=== PATIENT | female | born 1940 | race Caucasian/White ===

== ENCOUNTER 2017-02-08 12:15 | Inpatient (IN) | payer OTHER, MEDICARE ==
[~2017-02-08] VITALS: Ht 167.6 cm; Wt 72.5 kg
[~2017-02-08 12:15] MED LIST: APIX5TAB PO; LEVE500T8 PO; LEVO-129 PO; OMEP20CA2 PO; SIMV10TA PO; TEMA15CA PO; TIZA4 PO
[2017-02-15] MEDS ORDERED: DULC5TAB PO (11:49)
[2017-02-15] MEDS ORDERED: OXYC-395 PO (11:55)
[2017-02-18] MEDS ORDERED: MACR100C2 PO (15:47)
[2017-02-20] MEDS ORDERED: PROM25TA5 PO (11:20)
[2017-02-27] MEDS ORDERED: SODIUM CHLOR 0.9% 1000 ML INJ 1,000 ML IV SCH (07:00)
[2017-02-27] MEDS ORDERED: VANCOMYCIN HCL 1000 MG ON-CALL/NS 250 ML IV SCH ×2 (07:00)
[2017-02-27 07:30] VITALS: BP 79/49; PULSE 62; RESP 18; TEMP 98; O2SAT 99
[2017-02-27] MEDS ORDERED: POVIDONE IODINE 5% (ANTISEPSIS KIT) 4 APPLICATIONS EACH NARE PRN (07:30)
[2017-02-27] MEDS ORDERED: METOPROLOL TARTRATE 25 MG TAB PO PRN (07:30)
[2017-02-27] MEDS ORDERED: CHLORHEXIDINE GLUCONATE 2 % 1 PACK (2 CLOTHS) TOPICAL PRN (07:30)
[2017-02-27] MEDS ORDERED: LACTATED RINGER'S 1000 ML IV PRN (07:30)
[2017-02-27] MEDS ORDERED: SODIUM CHLORID 0.9% 500 ML IV PRN (07:30)
[2017-02-27] MEDS ORDERED: INSULIN HUMAN REGULAR 1,000 UNITS/10 ML VIAL SQ PRN (07:30)
[2017-02-27] MEDS ORDERED: GELFOAM SIZE 100 ONE (07:34)
[2017-02-27] MEDS ORDERED: THROMBIN (TOPICAL) 5,000 UNIT VIAL ONE (07:34)
[2017-02-27] MEDS ORDERED: BUPIVACAINE/EPINEPHRINE 0.5% PF 30 ML VIAL ONE (07:34)
[2017-02-27] MEDS ORDERED: ceFAZolin 2 GM PREMIX 50 ML ONE (07:34)
[2017-02-27] MEDS ORDERED: GENTAMICIN SULFATE 80 MG/2 ML VIAL ONE (07:35)
[2017-02-27] MEDS ORDERED: ACETAMINOPHEN 1000 MG/100 ML VIAL IV ONE (08:24)
[2017-02-27] MEDS ORDERED: MIDAZOLAM HCL 2 MG/2 ML VIAL ONE (08:24)
[2017-02-27] MEDS ORDERED: fentaNYL CITRATE 250 MCG/5 ML AMP ONE (08:25)
[2017-02-27] MEDS ORDERED: ARTIFICIAL TEARS OPTH OINT 3.5 APPLIC/3.5 GM TUBO ONE (08:25)
[2017-02-27] MEDS ORDERED: PHENYLEPHRINE HCL 10 MG/ML VIAL IV ONE (12:00)
[2017-02-27] MEDS ORDERED: LACTATED RINGER'S 1000 ML INJ 1,000 ML IV ONE (12:00)
[2017-02-27] MEDS ORDERED: SODIUM CHLOR 0.9% 250 ML INJ 250 ML IV ONE (12:00)
[2017-02-27] MEDS ORDERED: ONDANSETRON HCL 4 MG/2 ML VIAL IV PUSH ONE (12:00)
[2017-02-27] MEDS ORDERED: SODIUM CHLORID 0.9% 500 ML INJ 500 ML IV ONE (12:00)
[2017-02-27] MEDS ORDERED: PROPOFOL 200 MG/20 ML AMP IV ONE (12:00)
[2017-02-27] MEDS ORDERED: NALOXONE HCL 0.4 MG/ML AMP IV PRN (12:30)
[2017-02-27] MEDS: SODIUM CHLORIDE 0.9% FLUSH 5 ML FLUSH IVF SCH ×2 (12:30→20:26)
[2017-02-27] MEDS ORDERED: cloNIDine HCL 0.1 MG TAB PO/NG PRN (12:30)
[2017-02-27] MEDS ORDERED: CYCLOBENZAPRINE HCL 10 MG TAB PO PRN (12:30)
[2017-02-27] MEDS ORDERED: diphenhydrAMINE HCL 50 MG/ML VIAL IV PRN (12:30)
[2017-02-27] MEDS ORDERED: ACETAMINOPHEN/HYDROcodone 325 MG/10 MG TAB PO PRN (12:30)
[2017-02-27] MEDS ORDERED: ACETAMINOPHEN 325 MG TAB PO PRN (12:30)
[2017-02-27] MEDS ORDERED: SODIUM CHLORIDE 0.9% FLUSH 5 ML FLUSH IVF PRN (12:30)
[2017-02-27] MEDS ORDERED: MENTHOL LOZENGE BUCCAL PRN (12:30)
[2017-02-27] MEDS ORDERED: RESP: ALBUTEROL 2.5 MG/3 ML NEB (PRN) INH (12:30)
[2017-02-27] MEDS ORDERED: DO NOT ADM ANY ANTICOAGULANT DRUGS PRN (12:57)
[2017-02-27] MEDS ORDERED: *morphine SULFATE 8 MG/ML PERIprocedure ONLY ONE (13:31)
--- NOTE | 2017-02-27 13:38 | PD.OP ---
Operative Report Date of Surgery: Feb 27, 2017 Preoperative Diagnosis: L4-5 spondylolisthesis Postoperative Diagnosis: L4-5 spondylolisthesis Procedure: L4-5 laminectomy, interbody arthrodhesis using PEEK cage and autologous bone graft, L4-5 instrumental fixation using transpedicular screws and rods, L4-5 posterolateral fusion using autologous bone graft and rods. Microsurgical dissection Anesthesia: general Surgeon: Joe Frances Culinary Internship(s): Anita Linda Operation and Findings: INDICATIONS FOR THE SURGICAL PROCEDURE Ms Macario is a 76 year-old female who presented with intractable mechanical back pain and michelle evidence of L5 lower extremity radiculopathy. She failed maximum nonsurgical management including multiple modalities of conservative treatment as well as pain management interventions by an interventional pain specialist. She has spondylolisthesis and severe loss of disk height. A surgical decompression and arthrodhesis were indicated as a last resort. The [id number] details of the procedure, indications, alternatives, risks and potential complications were fully discussed with her. She fully understood. All the questions were answered. No guarantees were given. The patient voiced requesting the procedure and provided informed consents. The patient was offered the alternative of delaying the procedure and continuing with nonsurgical management. DETAILS OF THE SURGICAL PROCEDURE Prior to the procedure, the surgical incision was marked in the preoperative surgical holding room, and the procedure, risks, and potential complications revisited with the patient. Placement of electrodes for intraoperative neurophysiological monitoring was completed. The patient was taken to the operative room, and following induction of general anesthesia, endotracheal intubation was performed. A Holder catheter, bilateral JEAN hose and sequential compression devices were placed and kept throughout the procedure. The patient was positioned prone, over a Benito table over a Bunny frame. All pressure in the preoperative surgical holding room points were carefully padded with eggcrate and gel mattress. The eyes were tapped shut after ointment was applied by the anesthesiologist to prevent corneal abrasion. A Ava hugger was placed over the expossed lower body to maintain control of the core body temperature. The electrophysiological team placed the needles and electrodes in their proper location and baseline SSEP's and motor evoked potentials were registered prior and following the positioning. The entrance to each pedicles was marked using a C arm. The lumbar region was prepped and draped in the usual sterile fashion. The surgical procedure was performed in several steps as follow: SURGICAL APPROACH Once the patient was positioned, a localizing cross-table lateral x-ray was performed with a C-arm. Two paramedian small incisions were outlined on the skin approximately 3cm from the midline. The skin incisions were made with a # 10 blade. Small bleeders were controlled with the cautery. The dissection was then carried out into deper planes and through the thoracolumbar fascia with a Bovie. The intermuscular septum was identified and the myscles were blunted dissected along the septum. The facets and transverse process of L4, L5 and S1 were exposed and the proper anatomical landmarks were identified. A microsurgical self-retaining retractor was placed on the incision, and a localizing lateralizing cross-table x-ray was performed with an instrument underneath a lamina of the lumbar spine. There was a bilateral pars defect with gross instability of the bony structures. INSTRUMENTAL FIXATION At this point in the procedure, placement of bilateral transpedicular screws was necessary for stabilization of the spine. Initially, the entry point for the screw was selected anatomically at the junction of the facet, with the transverse process, and the pars interarticularis at L5 and at the sacrum. This was started with a Giamshetti needle, followed by the use of an meneses wire, and then a tap was used to create the threads for the screws. Finally bilateral transpedicular screws were carefully placed bilaterally at L4, L5 under fluoroscopic visualization. An appropriate purchase was achieved with all screws. The position of each screw was assessed anatomically with an AP, lateral , oblique Xrays. An intraoperative scan view of the spine was then performed using the iso-centric c-arm. Each screw was then assessed electrophysiologically with a nerve stimulator. SURGICAL DECOMPRESSION There was significant mass effect with compression of the neural structures. In order to relieve neural compression, it was necessary to perform a decompressive laminectomy, with decompression of the spinal canal and bilateral lateral recesses. Note that the scope of such decompression was significantly more extensive than the minimal exposure necessary to perform an interbody fusion, as there was extreme facet arthropathy with near complete collapse of the disk spaces and severe stenosis cause by the hyperthrophic joint facets. At this point of the procedure the operative microscope was draped in the usual sterile fashion and brought to the field. The rest of the surgical procedure was performed using microdissection technique with the exception of the closure. Under the operating microscope, a decompressive laminectomy was carried out at L4-5 as follow: The laminae, base of the spinous processes and facets were carefully drilled exposing the ligamentum flavum. The facets were abnormal with severe facet arthropathy, vacuum facets, and mass effect over the neural structures. A broad disk protusion was contributing to compression of the neural structures and exiting L5 nerve roots. A near complete facetectomy was necessary resulting in further mechanical instability. The ligamentum flavum appeared hypertrophic, resulting on mass effect on the dorsal surface of the neural structures. The superior free border of the ligamentum flavum was elevated with a ligament dissector and the ligamentum flavum was removed with a 3 and 4 mm Kerrison forceps. The ligament was very adherent to the dural sac and during the dissection, ans extreme care was taken during the dissection. The exiting nerve roots were identified, and a wide foraminotomy was performed with a Kerrison in their trajectory towards the neural foramen at both levels. Epidural veins located laterally to the dural sac were coagulated with the bipolar cautery, and then incised using microscissors. Gentle medial retraction of the dural sac allowed me to expose the disc space for the discectomy. Upon completion of the discectomy, an excellent decompression of the neural structures was achieved. INTERBODY ARTHRODHESIS In order to correct the narrowing of the disk space and maintain distraction of the space, and to achieve a solid interbody fusion, it was necessary the insertion of an interbody device into the disk space. Otherwise, the disk space would collapse, compromising the result of the surgical procedure. At this point of the procedure, the annulus fibrosus of the disk was carefully coagulated with a bipolar cautery and incised using an 11 bladed knife. Then, a microdiscectomy was carried out in a standard fashion using a combination of straight and up-biting pituitary forceps. A reverse angle curette was applied underneath the posterior longitudinal ligament, and used to push the disk fragments into the disk space, so they can be safely removed with a pituitary forceps. Once the discectomy was completed, it was necessary to decorticate the endplates, in order to eliminate the cartilaginous endplate and to expose healthy bone appropriate to perform the interbody fusion. The endplates at L4-5 were then thoroughly decorticated using increasing size bone ela and ring curets, eliminating the cartilaginous fragments from both, the superior and inferior endplates. A disk space distractor was applied to the pedicle screws and gentle distraction was applied. This maneuver was assisted by the use of a disk distractor. Once a thorough preparation of the disk space was achieved, the disk space was irrigated with antibiotic solution, and the interbody fusion was performed by carefully impacting expandable PPEK cages filled with autologous iliac crest bone graft. The cage was properly deployed and thereafter packed with further bone graft by the use of a funnel. A solid position of the cage with good purchase was achieved at both levels. The position of the cages were assessed anatomically with a probe and radiologically with the C-arm. POSTEROLATERAL FUSION The posterolateral fusion is a critical component to the procedure, to prevent future fatigue and failure of the instrumental fixation. Initially, the transverse processes of the vertebral bodies, lateral surface of the facets and the lateral gutters of the spine were carefully cleaned, eliminating all soft tissue and muscle attachments. The area was then irrigated with a large amount of antibiotic solution. Subsequently, the transverse processes, lateral surface of the facets, and lateral gutters of the spine were thoroughly decorticated using the TPS drill with a 5mm cutting bautista, exposing cancellous bone, in preparation for the posterolateral fusion. The incision was again irrigated with antibiotic solution. Then, the posterolateral fusion was then performed by carefully packing the lateral gutters of the spine at L4-5, and L5-S1 with autologous bone combined with demineralized bone matrix. I packed as much bone as possible. COMPLETION OF THE INSTRUMENTATION AND CLOSURE The rods were brought to the field, applied to all the screws, and the screw caps were sequentially applied. Compression was performed between the pedicle screws, and final tightening of the screws was completed using a torque wrench The incision was again thoroughly irrigated with several liters of antibiotic solution, and hemostasis secured with the bipolar cautery. A Valsalva Maneuver performed by the anesthesiologist failed to show any evidence of cerebrospinal fluid leak or bleeding. A 7 mm Benito-Gutierrez drain was left in the epidural space and externalized through a separate stab incision. The incision was then closed in planes. 0 Vicryl was used in an interrupted fashion to close the thoracolumbar fascia and the superficial fascia. The subcutaneous tissue was then approximated using 3-0 Vicryl in an interrupted fashion. Special care was taken to avoid space. The skin was then closed with 4-0 Vicryl in a running, subcuticular fashion. Dermabond was applied to the skin. Each plane of closure was irrigated with antibiotic solution. At the end of the procedure the sponge, needle and instrument counts were all correct. Estimated blood loss was 250 cc or less. No blood transfusion was given. The entire procedure was performed using continuous electrophysiological monitoring of the somatosensorial evoked potentials and EMG. The patient received prophylactic antibiotics. The patient was then extubated and transferred to the recovery room in stable condition. Joe Frances MD Feb 27, 2017 13:38
[2017-02-27] MEDS: NS + KCL 20 MEQ INJ 1,000 ML IV SCH ×2 (13:45→22:24)
--- NOTE | 2017-02-27 13:47 | RADRPT ---
EXAM DATE/TIME: 02/27/2017 09:25 [facility] COMPARISON: No previous studies available for comparison. INDICATIONS : Herniated disk, stenosis, hardware placement. MEDICAL HISTORY : None. SURGICAL HISTORY : ENCOUNTER: Initial ACUITY: 1 day PAIN SCORE: Non-responsive. LOCATION: Lumbar spine, L4-5. FINDINGS: 2 images were recorded digitally in the operating room using C-arm after placement of 2 level bilater al transpedicular screws and metallic interspace device. CONCLUSION: Intraoperative images. Froylan Mantilla MD on February 27, 2017 at 13:45 Board Certified Radiologist. This report was verified electronically.
[2017-02-27] MEDS: PCA - TOTAL MG DILAUDID DELIVERED PER SHIFT SCH ×2 (14:00→22:00)
[2017-02-27] MEDS: HYDROmorphone HCL PCA 6 MG/30 ML IV SCH ×3 (14:21→22:30)
[2017-02-27] MEDS: DOCUSATE SODIUM 100 MG CAP PO SCH ×2 (14:30→20:25)
[2017-02-27] MEDS: PANTOPRAZOLE SOD 40 MG DELAYED RELEASE TAB PO SCH (15:00)
[2017-02-27 16:06] VITALS: BP 158/89; PULSE 79; RESP 14; TEMP 97.4; O2SAT 99
--- NOTE | 2017-02-27 17:27 | PD.CONS ---
HPI Service [facility] Consult Requested By Dr. Frances Reason for Consult Medical management Primary Care Physician Jaden Young M.D. Diagnoses: History of Present Illness This is a 76-year-old female with past medical history of hypothyroidism, hyperlipidemia, seizure, history of DVTs who presented with intractable lower back pain with left radiculopathy. Patient failed conservative management and had L4-5 laminectomy, interbody arthrodhesis using PEEK cage and autologous bone graft, L4-5 instrumental fixation using transpedicular screws and rods, L4-5 posterolateral fusion using autologous bone graft and rods and microsurgical dissection done by Dr. Frances today. [facility] consulted for medical management. Patient complaining of feeling uncomfortable in her lower back after surgery. She stated that her strength has improved. Patient stated that she is very hungry and is asking for food. Otherwise she has no complaints. I did hear a soft heart murmur on exam and patient stated that she has no history of heart murmur. Review of Systems Constitutional: DENIES: Diaphoretic episodes, Fatigue, Fever, Weight gain, Weight loss, Chills, Dizziness, Change in appetite, Night Sweats Endocrine: DENIES: Abnorml menstrual pattern, Heat/cold intolerance, Polydipsia , Polyuria, Polyphagia Eyes: DENIES: Blurred vision, Diplopia, Eye inflammation, Eye pain, Vision loss , Photosensitivity, Double Vision Ears, nose, mouth, throat: DENIES: Tinnitus, Hearing loss, Vertigo, Nasal discharge, Oral lesions, Throat pain, Hoarseness, Ear Pain, Running Nose, Epistaxis, Sinus Pain, Toothache, Odynophagia Respiratory: DENIES: Apneas, Cough, Snoring, Wheezing, Hemoptysis, Sputum production, Shortness of breath Cardiovascular: DENIES: Chest pain, Palpitations, Syncope, Dyspnea on Exertion , PND, Lower Extremity Edema, Orthopnea, Claudication Gastrointestinal: DENIES: Abdominal pain, Black stools, Bloody stools, Constipation, Diarrhea, Nausea, Vomiting, Difficulty Swallowing, Anorexia Genitourinary: DENIES: Abnormal vaginal bleeding, Dysmenorrhea, Dyspareunia, Sexual dysfunction, Urinary frequency, Urinary incontinence, Urgency, Hematuria , Dysuria, Nocturia, Vaginal discharge Musculoskeletal: COMPLAINS OF: Back pain, DENIES: Joint pain, Muscle aches, Stiffness, Joint Swelling, Neck pain Integumentary: DENIES: Abnormal pigmentation, Pruritus, Rash, Nail changes, Breast masses, Breast skin changes, Nipple discharge Hematologic/lymphatic: DENIES: Bruising, Lymphadenopathy Immunologic/allergic: DENIES: Eczema, Urticaria Neurologic: DENIES: Abnormal gait, Headache, Localized weakness, Paresthesias, Seizures, Speech Problems, Tremor, Poor Balance Psychiatric: DENIES: Anxiety, Confusion, Mood changes, Depression, Hallucinations, Agitation, Suicidal Ideation, Homicidal Ideation, Delusions Past Family Social History Allergies: Coded Allergies: Penicillin (Verified Allergy, Severe, Anaphylaxis, 02/27/17) Clindamycin (Verified Adverse Reaction, Severe, NAUSEA, 02/27/17) Past Medical History Hypothyroidism, hyperlipidemia, seizure, history DVT Past Surgical History Patient stated that she could not recall any other past surgical history at the moment. Reported Medications Oxycodone (Oxycodone HCl) 10 Mg Tab 10 Mg PO Q8H PRN Dulcolax DR (Bisacodyl) 5 Mg Tabdr 5 Mg PO DAILY PRN Zanaflex (Tizanidine HCl) 4 Mg Tab 4 Mg PO QID Temazepam 15 Mg Cap 15 Mg PO HS PRN Simvastatin 10 Mg Tab 10 Mg PO DAILY Omeprazole 20 Mg Cap 20 Mg PO BID Levo-T (Levothyroxine Sodium) 137 Mcg Tab 137 Mcg PO HS Levetiracetam 500 Mg Tab 500 Mg PO HS Eliquis (Apixaban) 5 Mg Tab 5 Mg PO BID Active Ordered Medications Current Medications Sodium Chloride 1,000 ml @ 30 mls/hr Q24H IV ; Start 02/27/17 at 07:00; Stop at 14:22; Status DC Vancomycin HCl 1000 mg/Sodium Chloride 250 ml @ 250 mls/hr SWATCH PASTER IV Last administered on 02/27/17t 08:00; Start 02/27/17 at 07:00; Stop 02/27/17 at 16:50 ; Status DC Lactated Ringer's 1,000 ml @ 30 mls/hr Q24H PRN IV SEE LABEL COMMENTS; Start at 07:30; Stop 02/27/17 at 14:03; Status DC Sodium Chloride (NS 500 ml Inj) 500 ml @ 30 mls/hr [id number] PRN IV SEE LABEL COMMENTS; Start 02/27/17 at 07:30; Stop 02/27/17 at 14:03; Status DC Metoprolol Tartrate (Lopressor) 25 mg SWATCH PASTER PRN PO SEE LABEL COMMENTS; Start 02/27/17 at 07:30; Stop 03/02/17 at 07:29 Povidone Iodine (Betadine 5% Antisepsis Kit) 1 applic SWATCH PASTER PRN EACH NARE SEE LABEL COMMENTS; Start 02/27/17 at 07:30; Stop 02/27/17 at 16:50; Status DC Chlorhexidine Gluconate (Chlorhexidine 2% Cloth) 3 pack SWATCH PASTER PRN TOPICAL SEE LABEL COMMENTS; Start 02/27/17 at 07:30; Stop 02/27/17 at 16:50; Status DC Insulin Human Regular (NovoLIN R INJ) See Protocol Table ... SWATCH PASTER PRN SQ SEE PROTOCOL TABLE; Start 02/27/17 at 07:30; Stop 02/27/17 at 16:50; Status DC Thrombin 52756 units 10,000 units STK-MED ONCE .ROUTE Last administered on 02/27 10:51; Start 02/27/17 at 07:34; Stop 02/27/17 at 07:35; Status DC Cefazolin Sodium/ Dextrose (Ancef 2 Gm Premix) 50 ml @ As Directed STK-MED ONCE .ROUTE Last administered on 02/27/17 09:37; Start 02/27/17 at 07:34; Stop at 07:35; Status DC Bupivacaine HCl/ Epinephrine Bitart (Sensorcaine-Epinephrine Pf 0.5% Inj) 30 ml STK-MED ONCE .ROUTE Last administered on 02/27/17 10:50; Start 02/27/17 at 07: 34; Stop 02/27/17 at 07:35; Status DC Gelatin (Gelfoam 100 Top) 1 foam STK-MED ONCE .ROUTE Last administered on 10:50; Start 02/27/17 at 07:34; Stop 02/27/17 at 07:35; Status DC Gentamicin Sulfate (Gentamicin Inj) 240 mg STK-MED ONCE .ROUTE Last administered on 02/27/17 10:51; Start 02/27/17 at 07:35; Stop 02/27/17 at 07:36 ; Status DC Acetaminophen (Ofirmev Inj) 1,000 mg STK-MED ONCE IV ; Start 02/27/17 at 08:24; Stop 02/27/17 at 08:25; Status DC Midazolam HCl (Versed Inj) 2 mg STK-MED ONCE .ROUTE ; Start 02/27/17 at 08:24; Stop 02/27/17 at 08:25; Status DC Fentanyl Citrate (fentaNYL INJ) 500 mcg STK-MED ONCE .ROUTE ; Start 02/27/17 at 08:25; Stop 02/27/17 at 08:26; Status DC Artificial Tears 3.5 applic 3.5 applic STK-MED ONCE .ROUTE ; Start 02/27/17 at 08:25; Stop 02/27/17 at 08:26; Status DC Potassium Chloride/Sodium Chloride (NS + KCl 20 Meq Inj) 1,000 ml @ 100 mls/hr Q10H IV Last administered on 02/27/17t 13:45; Start 02/27/17 at 12:20 IV Flush (NS Flush) 2 ml UNSCH PRN IVF FLUSH AFTER USING IV ACCESS; Start 02/27 at 12:30 IV Flush 2 ml 2 ml BID IVF ; Start 02/27/17 at 12:30 Vancomycin HCl/ Sodium Chloride (Vancomycin Inj/ NS 250 ml Inj) 250 ml @ 250 mls/hr Q12H IV ; Start 02/27/17 at 20:00; Stop 02/28/17 at 08:59 Docusate Sodium (Colace) 100 mg BID PO ; Start 02/27/17 at 14:30 Magnesium Hydroxide (Milk Of Magnesia Liq) 30 ml DAILY PRN PO CONSTIPATION; Start 02/27/17 at 12:30 Pantoprazole Sodium (Protonix) 40 mg DAILY PO ; Start 02/27/17 at 15:00 Ondansetron HCl (Zofran Inj) 4 mg Q6H PRN IV NAUSEA OR VOMITING; Start at 12:30 Cyclobenzaprine HCl (Flexeril) 10 mg Q8H PRN PO MUSCLE SPASM; Start 02/27/17 at 12:30; Stop 02/27/17 at 12:35; Status DC Clonidine (Catapres) 0.1 mg Q6H PRN PO/NG SYS BP GREATER THAN 170 MMHG; Start 02/27/17 at 12:30 Acetaminophen (Tylenol) 650 mg Q4H PRN PO TEMPERATURE > 101.5 F; Start at 12:30 Menthol ([place]) 1 lozenge UNSCH PRN BUCCAL SORE THROAT; Start 02/27/17 at 12:30 Albuterol Sulfate (Albuterol Neb) 2.5 mg Q4HR NEB PRN INH WHEEZING; Start 02/27 at 12:30 Naloxone HCl (Narcan Inj) 0.4 mg UNSCH PRN IV RESPIRATORY RATE LESS THAN 10; Start 02/27/17 at 12:30 Diphenhydramine HCl (Benadryl Inj) 25 mg Q6H PRN IV ITCHING; Start 02/27/17 at 12:30 Hydromorphone HCl (Dilaudid CRUCIBLE FURNACE TENDER Inj) 6 mg UNSCH IV Last administered on t 17:05; Start 02/27/17 at 12:30 CRUCIBLE FURNACE TENDER Dosage Infused (Pha) 1 Q8HR .XX ; Start 02/27/17 at 14:00 Acetaminophen/ Hydrocodone Bitart ([place] 10-325 Mg) 1 tab Q4H PRN PO PAIN SCALE 1 TO 5; Start 02/27/17 at 12:30 Acetaminophen/ Hydrocodone Bitart ([place] 10-325 Mg) 2 tab Q4H PRN PO PAIN SCALE 6 TO 10; Start 02/27/17 at 12:30 Levetriacetam (Keppra) 500 mg HS PO ; Start 02/27/17 at 21:00 Temazepam (Restoril) 15 mg HS PRN PO INSOMNIA; Start 02/27/17 at 21:00 Levothyroxine Sodium (Synthroid) 112 mcg HS PO ; Start 02/27/17 at 21:00 Pravastatin Sodium (Pravachol) 20 mg DAILY PO ; Start 02/28/17 at 09:00 Tizanidine HCl (Zanaflex) 4 mg QID PO ; Start 02/27/17 at 13:00; Stop 02/27/17 at 13:00; Status DC Tizanidine HCl (Zanaflex) 4 mg QID PRN PO muscle spasms; Start 02/27/17 at 13: 00 Morphine Sulfate (*morphine INJ PERIprocedure ONLY) 8 mg STK-MED ONCE .ROUTE Last administered on 02/27/17 13:31; Start 02/27/17 at 13:31; Stop 02/27/17 at 13:32; Status DC Miscellaneous Information ALL NURSING DEPARTME... UNSCH PRN .XX SEE LABEL COMMENTS; Start 02/27/17 at 12:57; Stop 02/28/17 at 12:56 Levothyroxine Sodium (Synthroid) 25 mcg HS PO ; Start 02/27/17 at 21:00 Family History Brother from unknown cancer. Mother and father had dementia. Social History Denies tobacco, alcohol illicit drug use. Patient quit smoking 15 years ago. Physical Exam Vital Signs Vital Signs Date Time Temp Pulse Resp B/P Pulse Ox O2 Delivery O2 Flow Rate FiO2 02/27/17 16:06 97.4 79 14 158/89 99 02/27/17 15:30 97.6 75 15 147/73 98 Nasal Cannula 2 02/27/17 15:00 77 15 151/75 97 Nasal Cannula 2 02/27/17 14:30 97.5 78 15 149/78 97 Nasal Cannula 2 02/27/17 14:21 15 02/27/17 14:15 82 15 143/80 96 Nasal Cannula 2 02/27/17 14:00 83 15 140/85 95 Nasal Cannula 2 02/27/17 13:45 82 15 133/56 99 Nasal Cannula 3 143/75 02/27/17 13:36 15 02/27/17 13:30 84 15 138/58 98 Nasal Cannula 3 146/70 02/27/17 13:15 86 15 146/63 100 Nasal Cannula 4 130/66 02/27/17 13:00 97.3 89 16 131/56 99 Nasal Cannula 4 123/83 02/27/17 07:30 98.0 62 18 79/49 99 Physical Exam GENERAL: This is a well-nourished, well-developed patient, in no apparent distress. SKIN: No rashes, ecchymoses or lesions. Cool and dry. HEAD: Atraumatic. Normocephalic. No temporal or scalp tenderness. EYES: Pupils equal round and reactive. Extraocular motions intact. No scleral icterus. No injection or drainage. ENT: Nose without bleeding, purulent drainage or septal hematoma. Throat without erythema, tonsillar hypertrophy or exudate. Uvula midline. Airway patent. NECK: Trachea midline. No JVD or lymphadenopathy. Supple, nontender, no meningeal signs. CARDIOVASCULAR: Regular rate and rhythm. No rubs or gallops noted. Patient has a soft 2 out of 6 systolic heart murmur. RESPIRATORY: Clear to auscultation. Breath sounds equal bilaterally. No wheezes , rales, or rhonchi. GASTROINTESTINAL: Abdomen soft, non-tender, nondistended. No hepato-splenomegaly , or palpable masses. No guarding. MUSCULOSKELETAL: Extremities without clubbing, cyanosis, or edema. No joint tenderness, effusion, or edema noted. No calf tenderness. Negative Homans sign bilaterally. JIMMY Drain is in place with blood. NEUROLOGICAL: Awake and alert. Cranial nerves II through XII intact. Motor and sensory grossly within normal limits. Five out of 5 muscle strength in all muscle groups. Normal speech. Laboratory Laboratory Tests Test 02/27/17 07:35 Blood Type A POSITIVE Antibody Screen NEGATIVE Blood Bank Comment Imaging Last Impressions Lumbar Spine X-Ray 02/27/17 0000 Signed Impressions: Service Date/Time: Monday, February 27, 2017 09:25 - CONCLUSION: Intraoperative images. Froylan Mantilla MD Assessment and Plan Assessment and Plan This is a 76-year-old female with chronic lower back pain who failed conservative management L4-5 spondylolisthesis -Failed conservative management. -Status post L4-5 laminectomy, interbody arthrodhesis using PEEK cage and autologous bone graft, L4-5 instrumental fixation using transpedicular screws and rods, L4-5 posterolateral fusion using autologous bone graft and rods, and microsurgical dissection by Dr. Frances on 02/27/2017. -Continue management per Dr. Frances. Hypothyroidism/hyperlipidemia/history of seizure disorder/history of DVTs -Primary team already resume home medication. -Eliquis was held. Restart eliquis when okay by the primary team. FENGI -Patient on IV fluids. -Dinner was ordered for patient. She is on a cardiac diet. Patient stated she has never been on a low-sodium diet. Consider regular diet per primary team. DVT prophylaxis -SCDs. Discussed Condition With Patient. Taty Ware MD Feb 27, 2017 17:27
[2017-02-27 19:37] VITALS: BP 141/66; PULSE 85; RESP 17; TEMP 97.4; O2SAT 99
[2017-02-27] MEDS: LEVOTHYROXINE SODIUM 112 MCG TAB PO SCH (20:25)
[2017-02-27] MEDS: LEVOTHYROXINE SODIUM 25 MCG TAB PO SCH (20:25)
[2017-02-27] MEDS: VANCOMYCIN INJ 1,000 MG in SODIUM CHLOR 0.9% 250 ML INJ 250 ML IV SCH (20:25)
[2017-02-27] MEDS: levETIRAcetam 500 MG TAB PO SCH (20:25)
--- NOTE | 2017-02-27 21:02 | EC ---
Study Study Date:02/27/2017 STUDY CONCLUSIONS SUMMARY - Left ventricle: The cavity size was normal. Wall thickness was normal. Systolic function was normal. The estimated ejection fraction was 60%. Wall motion was normal; there were no regional wall motion abnormalities. - Aortic valve: Transvalvular velocity was increased. There was mild stenosis. - Right ventricle: The cavity size was mildly dilated. Wall thickness was increased. - Pericardium, extracardiac: There wassmall pericardial effusion. If LV function is below 40, please consider prescribing an ACEI or ARB or document rationale for non-use. PROCEDURE DATA STUDY STATUS: Elective. Procedure: Transthoracic echocardiography. Image quality was good. Scanning was performed from the parasternal, apical, and subcostal acoustic windows. Study completion: The patient tolerated the procedure well. Transthoracic echocardiography. M-mode, complete 2D, complete spectral Doppler, and color Doppler. Height: Height: 66in. Weight: Weight: 149.7lb. Body mass index: BMI: 24.2kg/m^2. Body surface area: BSA: 1.77m^2. Patient status: Inpatient. CARDIAC ANATOMY LEFT VENTRICLE: The cavity size was normal. Wall thickness was normal. Systolic function was normal. The estimated ejection fraction was 60%. Wall motion was normal; there were no regional wall motion abnormalities. AORTIC VALVE: Trileaflet; mildly thickened leaflets. Doppler: Transvalvular velocity was increased. There was mild stenosis. No regurgitation. Valve area: 1.48cm^2(VTI). Indexed valve area: 0.84cm^2/m^2 (VTI). Valve area: 1.35cm^2 (Vmax). Indexed valve area: 0.76cm^2/m^2 (Vmax). Mean gradient: 18mm Hg (S). Peak gradient: 34mm Hg (S). AORTA: Aortic root: The aortic root was normal in size. MITRAL VALVE: Structurally normal valve. Doppler: Transvalvular velocity was within the normal range. There was no evidence for stenosis. Trace regurgitation. Valve area by pressure half-time: 5cm^2. Indexed valve area by pressure half-time: 2.82cm^2/m^2. Valve area by continuity equation (using LVOT flow): 2.23cm^2. Indexed valve area by continuity equation (using LVOT flow): 1.26cm^2/m^2. Mean gradient: 4mm Hg (D). Peak gradient: 7mm Hg (D). LEFT ATRIUM: The atrium was normal in size. RIGHT VENTRICLE: The cavity size was mildly dilated. Wall thickness was increased. PULMONIC VALVE: Doppler: Transvalvular velocity was within the normal range. There was no evidence for stenosis. No regurgitation. Peak gradient: 13mm Hg (S). TRICUSPID VALVE: Structurally normal valve. Doppler: Transvalvular velocity was within the normal range. Trace regurgitation. Peak gradient: 31mm Hg (D). PULMONARY ARTERY: The main pulmonary artery was normal-sized. Systolic pressure was within the normal range. RIGHT ATRIUM: The atrium was normal in size. PERICARDIUM: There wassmall pericardial effusion. SYSTEMIC VEINS: Inferior vena cava: The vessel was normal in size. Patient weight: 149.7lb _Ejection fraction:_ 65-75% _Fractional shortening:_ 32% up to 5Kg 5-11.5Kg 11.6-22.9Kg 23-45Kg 45-57Kg Aortic Root 7-13 <17 13-22 17-27 17-27 LA diam 6-13 <23 24-38 33-47 37-40 RVID 10-17 7-15 7-15 7-18 8-17 LVIDd 12-22 <32 24-38 33-47 37-40 LVPW 2-4 3-6 5-7 6-8 7-8 IVS 2-4 3-6 5-7 6-8 7-8 BASIC MEASUREMENTS ADULT NORMAL Left ventricle LV internal dimension, ED, chordal *41 mm 43-52 level, PLAX LV internal dimension, ES, chordal 24.5 mm 23-38 level, PLAX Fractional shortening, chordal level, 40 % >29 PLAX LV posterior wall thickness, ED 11.1 mm IVS/LVPW ratio, ED 0.96 <1.3 Ventricular septum Septal thickness, ED 10.7 mm Aortic valve Leaflet separation 18 mm 15-26 Left atrium Anterior-posterior dimension 32 mm Anterior-posterior dimension index 1.81 cm/m^2 <2.2 Right ventricle RV internal dimension, ED, PLAX 26.9 mm 19-38 BASIC MEASUREMENTS ADULT NORMAL Aortic valve Leaflet separation 18 mm 15-26 Aorta Root diameter, ED 26 mm 20-37 DOPPLER MEASUREMENTS ADULT NORMAL Aortic valve Peak velocity, S 291 cm/s Mean velocity, S 191 cm/s VTI, S 35 cm Mean gradient, S 18 mm Hg Peak gradient, S 34 mm Hg Valve area, VTI 1.48 cm^2 Valve area index, VTI 0.84 cm^2/m^2 Valve area, Vmax 1.35 cm^2 Valve area index, Vmax 0.76 cm^2/m^2 Mitral valve Peak E-wave velocity 89.3 cm/s Peak A-wave velocity 113 cm/s Mean velocity, D 94.6 cm/s Pressure half-time 44 ms Mean gradient, D 4 mm Hg Peak gradient, D 7 mm Hg Peak E/A ratio 0.8 Valve area, pressure half-time 5 cm^2 Valve area index, pressure half-time 2.82 cm^2/m^2 Valve area, LVOT continuity 2.23 cm^2 Valve area index, LVOT continuity 1.26 cm^2/m^2 Tricuspid valve Peak gradient, D 31 mm Hg Maximal inflow velocity 178 cm/s Systemic veins Estimated CVP 10 mm Hg Pulmonic valve Peak velocity, S 178 cm/s Peak gradient, S 13 mm Hg LEGEND: Mean values are shown as u=mean value. Asterisk (*) carty values outside specified normal range. Prepared and signed by Lex Jo [id number]
[2017-02-27] MEDS: TEMAZEPAM 15 MG CAP PO PRN (22:31)
[2017-02-28] VITALS (7 sets, daily range): BP systolic 131–164; BP diastolic 66–79; PULSE 60–99; RESP 16–18; TEMP 97.1–99; O2SAT 94–98
[2017-02-28] MEDS: HYDROmorphone HCL PCA 6 MG/30 ML IV SCH ×4 (01:48→21:00)
[2017-02-28] MEDS: PCA - TOTAL MG DILAUDID DELIVERED PER SHIFT SCH ×3 (06:00→22:00)
[2017-02-28 06:28] LABS: AUTOMATED NEUTROPHIL # 7.6 TH/MM3 (1.8-7.7); HEMATOCRIT 28.1 % (35.0-46.0); HEMO FLAGS DIFF FINAL; LYMPH % 9.3 % (9.0-44.0); LYMPHOCYTE # 0.9 TH/MM3 (1.0-4.8); MEAN CELL VOLUME 89.8 FL (80.0-100.0); MEAN CORPUSCULAR HGB CONC 33.5 % (32.0-36.0); MONO % 10.9 % (0.0-8.0); NEUT % 79.8 % (16.0-70.0); PLATELET COUNT 122 TH/MM3 (150-450); RED BLOOD COUNT 3.13 MIL/MM3 (4.00-5.30); RED CELL DISTRIBUTION WIDTH 13.6 % (11.6-17.2); WHITE BLOOD COUNT 9.5 TH/MM3 (4.0-11.0)
[2017-02-28 07:06] LABS: BICARBONATE 26.1 MEQ/L (21.0-32.0)
[2017-02-28 07:09] LABS: POTASSIUM 5.2 MEQ/L (3.5-5.1)
[2017-02-28] MEDS: ACETAMINOPHEN/HYDROcodone 325 MG/10 MG TAB PO PRN ×2 (07:33→13:31)
[2017-02-28] MEDS: NS + KCL 20 MEQ INJ 1,000 ML IV SCH ×2 (08:20→15:55)
[2017-02-28] MEDS: SODIUM CHLORIDE 0.9% FLUSH 5 ML FLUSH IVF SCH ×2 (09:00→21:00)
[2017-02-28] MEDS ORDERED: MORPHINE SULFATE 4 MG/ML INJ IV PUSH PRN (09:30)
[2017-02-28] MEDS: DOCUSATE SODIUM 100 MG CAP PO SCH ×2 (09:39→20:44)
[2017-02-28] MEDS: VANCOMYCIN INJ 1,000 MG in SODIUM CHLOR 0.9% 250 ML INJ 250 ML IV SCH (09:39)
[2017-02-28] MEDS: PANTOPRAZOLE SOD 40 MG DELAYED RELEASE TAB PO SCH (09:39)
[2017-02-28] MEDS: PRAVASTATIN SOD 20 MG TAB PO SCH (09:40)
--- NOTE | 2017-02-28 09:46 | HHI.NSPN ---
(Therese Augustin) Note Status Status: Progress Note (Therese Augustin) Interval History Interval History Ms. Macario underwent a L4-5 laminectomy, interbody arthrodesis using PEEK cage bone graft, posterolateral fixation with transpedicular screws and rods on Feb 27, 2017. 02/28: POD 1, moderate surgical pain even with Dilaudid INCOME TAX EXPERT, she has a history of chronic narcotic use. no chest pain, difficulty breathing. (Therese Augustin) Labs, Micro, & Vital Signs Results Date Time Temp Pulse Resp B/P Pulse Ox O2 Delivery O2 Flow Rate FiO2 02/28/17 08:00 98.1 99 18 152/67 94 02/28/17 06:00 18 02/28/17 04:21 97.1 88 17 152/76 94 02/28/17 02:21 17 02/28/17 01:48 17 02/28/17 00:19 98.5 93 18 148/73 95 02/27/17 22:30 18 02/27/17 22:00 18 02/27/17 19:37 97.4 85 17 141/66 99 02/27/17 18:57 Room Air 02/27/17 16:06 97.4 79 14 158/89 99 02/27/17 15:30 97.6 75 15 147/73 98 Nasal Cannula 2 02/27/17 15:00 77 15 151/75 97 Nasal Cannula 2 02/27/17 14:30 97.5 78 15 149/78 97 Nasal Cannula 2 02/27/17 14:21 15 02/27/17 14:15 82 15 143/80 96 Nasal Cannula 2 02/27/17 14:00 83 15 140/85 95 Nasal Cannula 2 02/27/17 13:45 82 15 133/56 99 Nasal Cannula 3 143/75 02/27/17 13:36 15 02/27/17 13:30 84 15 138/58 98 Nasal Cannula 3 146/70 02/27/17 13:15 86 15 146/63 100 Nasal Cannula 4 130/66 02/27/17 13:00 97.3 89 16 131/56 99 Nasal Cannula 4 123/83 02/28/17 07:00 Intake Total 3675 ml Output Total 1435 ml Balance 2240 ml Constitutional Vital Signs Date Time Temp Pulse Resp B/P Pulse Ox O2 Delivery O2 Flow Rate FiO2 02/28/17 08:00 98.1 99 18 152/67 94 02/28/17 06:00 18 02/28/17 04:21 97.1 88 17 152/76 94 02/28/17 02:21 17 02/28/17 01:48 17 02/28/17 00:19 98.5 93 18 148/73 95 02/27/17 22:30 18 02/27/17 22:00 18 02/27/17 19:37 97.4 85 17 141/66 99 02/27/17 18:57 Room Air 02/27/17 16:06 97.4 79 14 158/89 99 02/27/17 15:30 97.6 75 15 147/73 98 Nasal Cannula 2 02/27/17 15:00 77 15 151/75 97 Nasal Cannula 2 02/27/17 14:30 97.5 78 15 149/78 97 Nasal Cannula 2 02/27/17 14:21 15 02/27/17 14:15 82 15 143/80 96 Nasal Cannula 2 02/27/17 14:00 83 15 140/85 95 Nasal Cannula 2 02/27/17 13:45 82 15 133/56 99 Nasal Cannula 3 143/75 02/27/17 13:36 15 02/27/17 13:30 84 15 138/58 98 Nasal Cannula 3 146/70 02/27/17 13:15 86 15 146/63 100 Nasal Cannula 4 130/66 02/27/17 13:00 97.3 89 16 131/56 99 Nasal Cannula 4 123/83 02/28/17 07:00 Intake Total 3675 ml Output Total 1435 ml Balance 2240 ml (Therese Augustin) Review of Systems/Exam Exam Ms. Macario is alert, awake and oriented to time, place and person. Speech is fluent. Wound dry with dressing in place, JIMMY drain in place with moderate drainage. Cranial nerve: pupils equal, round and reactive to light. Extra-ocular movements are intact. Facial are normal and symmetrical. Muscle strength is normal in upper extremities. In Lower extremities 4/5 proximal limited due to surgical pain, 5/5 distal with chronic mild left foot drop. Sensory examination is intact to light touch and pin prick in both the upper and lower extremities. There is a bilateral plantar flexion response. (Therese Augustin) Medications Current Medications Current Medications Medications (Trade) Dose Ordered Sig/Enriqueta Route PRN Reason Start Time Stop Time Status Last Admin Dose Admin Potassium Chloride/Sodium Chloride (NS + KCl 20 Meq Inj) 1,000 ml @ 100 mls/hr Q10H IV 02/27/17 12:20 02/27/17 22:24 IV Flush (NS Flush) 2 ml UNSCH PRN IVF FLUSH AFTER USING IV ACCESS 02/27/17 12:30 IV Flush (NS Flush) 2 ml BID IVF 02/27/17 12:30 Docusate Sodium (Colace) 100 mg BID PO 02/27/17 14:30 02/27/17 20:25 Magnesium Hydroxide (Milk Of Magnesia Liq) 30 ml DAILY PRN PO CONSTIPATION 02/27/17 12:30 Pantoprazole Sodium (Protonix) 40 mg DAILY PO 02/27/17 15:00 Ondansetron HCl (Zofran Inj) 4 mg Q6H PRN IV NAUSEA OR VOMITING 02/27/17 12:30 Clonidine (Catapres) 0.1 mg Q6H PRN PO/NG SYS BP GREATER THAN 170 MMHG 02/27/17 12:30 Acetaminophen (Tylenol) 650 mg Q4H PRN PO TEMPERATURE > 101.5 F 02/27/17 12:30 Menthol ([place] Raine) 1 lozenge UNSCH PRN BUCCAL SORE THROAT 02/27/17 12:30 Naloxone HCl (Narcan Inj) 0.4 mg UNSCH PRN IV RESPIRATORY RATE LESS THAN 10 02/27/17 12:30 Diphenhydramine HCl (Benadryl Inj) 25 mg Q6H PRN IV ITCHING 02/27/17 12:30 Hydromorphone HCl (Dilaudid INCOME TAX EXPERT Inj) 6 mg UNSCH IV 02/27/17 12:30 02/28/17 01:48 INCOME TAX EXPERT Dosage Infused (Pha) 1 Q8HR .XX 02/27/17 14:00 02/28/17 06:00 Acetaminophen/ Hydrocodone Bitart ([place] 10-325 Mg) 1 tab Q4H PRN PO PAIN SCALE 1 TO 5 02/27/17 12:30 Acetaminophen/ Hydrocodone Bitart ([place] 10-325 Mg) 2 tab Q4H PRN PO PAIN SCALE 6 TO 10 02/27/17 12:30 02/28/17 07:33 Levetriacetam (Keppra) 500 mg HS PO 02/27/17 21:00 02/27/17 20:25 Temazepam (Restoril) 15 mg HS PRN PO INSOMNIA 02/27/17 21:00 02/27/17 22:31 Levothyroxine Sodium (Synthroid) 112 mcg HS PO 02/27/17 21:00 02/27/17 20:25 Pravastatin Sodium (Pravachol) 20 mg DAILY PO 02/28/17 09:00 Tizanidine HCl (Zanaflex) 4 mg QID PRN PO muscle spasms 02/27/17 13:00 Miscellaneous Information ALL NURSING DEPARTME... 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 I reviewed and agree with the findings presented. I attest that I had a [id number] encounter with the patient on the same day, and personally performed and documented my assessment and findings in the medical record. (Joe Frances MD) Therese Augustin Feb 28, 2017 09:46 Joe Frances MD Mar 01, 2017 14:08
[2017-02-28] MEDS: LEVOTHYROXINE SODIUM 112 MCG TAB PO SCH (20:44)
[2017-02-28] MEDS: LEVOTHYROXINE SODIUM 25 MCG TAB PO SCH (20:44)
[2017-02-28] MEDS: levETIRAcetam 500 MG TAB PO SCH (20:45)
[2017-02-28] MEDS: TEMAZEPAM 15 MG CAP PO PRN (20:48)
[2017-03-01] VITALS (8 sets, daily range): BP systolic 104–151; BP diastolic 54–74; PULSE 84–100; RESP 16–19; TEMP 97.5–99.5; O2SAT 93–98
[2017-03-01] MEDS: HYDROmorphone HCL PCA 6 MG/30 ML IV SCH (03:18)
[2017-03-01] MEDS: ACETAMINOPHEN/HYDROcodone 325 MG/10 MG TAB PO PRN (03:27)
[2017-03-01] MEDS: NS + KCL 20 MEQ INJ 1,000 ML IV SCH ×2 (04:20→13:53)
[2017-03-01] MEDS: PCA - TOTAL MG DILAUDID DELIVERED PER SHIFT SCH ×3 (06:00→22:00)
[2017-03-01] MEDS ORDERED: HYDR-3583 PO (08:57)
[2017-03-01] MEDS: SODIUM CHLORIDE 0.9% FLUSH 5 ML FLUSH IVF SCH ×2 (09:00→23:15)
[2017-03-01] MEDS ORDERED: OXYC-395 PO (09:10)
[2017-03-01] MEDS: ONDANSETRON HCL 4 MG/2 ML VIAL IV PRN ×2 (09:11→14:27)
[2017-03-01] MEDS: PRAVASTATIN SOD 20 MG TAB PO SCH (09:41)
[2017-03-01] MEDS: PANTOPRAZOLE SOD 40 MG DELAYED RELEASE TAB PO SCH (09:41)
[2017-03-01] MEDS: DOCUSATE SODIUM 100 MG CAP PO SCH ×2 (09:41→23:14)
[2017-03-01] MEDS: MAGNESIUM HYDROXIDE SUSP 30 ML CUP PO PRN (09:42)
--- NOTE | 2017-03-01 09:44 | HHI.DCPOC ---
Discharge Care Plan Diagnosis: (1) S/P lumbar spinal fusion Goals to Promote Your Health * To prevent worsening of your condition and complications * To maintain your health at the optimal level Directions to Meet Your Goals Take your medications as prescribed Follow your dietary instruction Follow activity as directed Keep your appointments as scheduled Take your immunizations and boosters as scheduled If your symptoms worsen call your PCP, if no PCP go to Urgent Care Center or Emergency Room Smoking is Dangerous to Your Health. Avoid second hand smoke Call the 24-hour hour crisis hotline for domestic abuse at Therese Augustin Mar 01, 2017 09:44
--- NOTE | 2017-03-01 09:45 | HHI.FF ---
Face to Face Verification Diagnosis: (1) S/P lumbar spinal fusion Physical Therapy Order: Improve ambulation Home Health Nursing Order: Medical education Signs/symptoms of disease process Medication education-adverse effect Wound care and dressing changes Nursing assessment with vital signs I have seen patient Mayelin Macario on 03/01/17. My clinical findings support the need for the requested home health care services because: Ltd mobility - disease progression Deconditioned w/ increased weakness I certify that my clinical findings support that this patient is homebound because: Post-op weakness Therese Augustin Mar 01, 2017 09:45
--- NOTE | 2017-03-01 12:29 | HHI.NSPN ---
(Therese Augustin) Note Status Status: Progress Note (Therese Augustin) Interval History Interval History Ms. Macario underwent a L4-5 laminectomy, interbody arthrodesis using PEEK cage bone graft, posterolateral fixation with transpedicular screws and rods on Feb 27, 2017. 02/28: POD 1, moderate surgical pain even with Dilaudid CHAIN MORTISER OPERATOR, she has a history of chronic narcotic use. no chest pain, difficulty breathing. 03/01: POD 2, doing ok, stable post-op pain, c/o nausea from CHAIN MORTISER OPERATOR, awaiting IV Zofran. Ambulated yesterday, does not want rehab upon dc. Reports of increased sensation in LE's. (Therese Augustin) Labs, Micro, & Vital Signs Results Date Time Temp Pulse Resp B/P Pulse Ox O2 Delivery O2 Flow Rate FiO2 03/01/17 09:22 97 03/01/17 08:00 98.3 99 19 134/72 94 03/01/17 06:00 15 03/01/17 04:00 99.5 94 16 144/66 97 03/01/17 03:18 15 03/01/17 00:00 98.8 95 16 149/74 97 02/28/17 22:00 16 02/28/17 21:00 16 02/28/17 18:33 98.8 60 16 131/69 95 02/28/17 17:38 21 02/28/17 17:04 18 02/28/17 16:00 99.0 90 18 143/66 96 02/28/17 13:32 18 03/01/17 07:00 Intake Total 2532 ml Output Total 1470 ml Balance 1062 ml Constitutional Vital Signs Date Time Temp Pulse Resp B/P Pulse Ox O2 Delivery O2 Flow Rate FiO2 03/01/17 09:22 97 03/01/17 08:00 98.3 99 19 134/72 94 03/01/17 06:00 15 03/01/17 04:00 99.5 94 16 144/66 97 03/01/17 03:18 15 03/01/17 00:00 98.8 95 16 149/74 97 02/28/17 22:00 16 02/28/17 21:00 16 02/28/17 18:33 98.8 60 16 131/69 95 02/28/17 17:38 21 02/28/17 17:04 18 02/28/17 16:00 99.0 90 18 143/66 96 02/28/17 13:32 18 03/01/17 07:00 Intake Total 2532 ml Output Total 1470 ml Balance 1062 ml (Therese Augustin) Review of Systems/Exam Exam Ms. Macario is alert and oriented to time, place and person. Speech is fluent. Wound healing well, dry. JIMMY drain in place with minimal drainage. Cranial nerve: pupils equal, round and reactive to light. Extra-ocular movements are intact. Facial are normal and symmetrical. Muscle strength is normal in upper extremities. In Lower extremities 5/5 proximal limited due to surgical pain, 5/5 distal with chronic mild left foot drop. Sensory examination is intact to light touch in lower extremities. There is a bilateral plantar flexion response. (Therese Augustin) Medications Current Medications Current Medications Medications (Trade) Dose Ordered Sig/Enriqueta Route PRN Reason Start Time Stop Time Status Last Admin Dose Admin Potassium Chloride/Sodium Chloride (NS + KCl 20 Meq Inj) 1,000 ml @ 100 mls/hr Q10H IV 02/27/17 12:20 02/27/17 22:24 IV Flush (NS Flush) 2 ml UNSCH PRN IVF FLUSH AFTER USING IV ACCESS 02/27/17 12:30 IV Flush (NS Flush) 2 ml BID IVF 02/27/17 12:30 02/28/17 09:00 Docusate Sodium (Colace) 100 mg BID PO 02/27/17 14:30 03/01/17 09:41 Magnesium Hydroxide (Milk Of Magnesia Liq) 30 ml DAILY PRN PO CONSTIPATION 02/27/17 12:30 03/01/17 09:42 Pantoprazole Sodium (Protonix) 40 mg DAILY PO 02/27/17 15:00 03/01/17 09:41 Ondansetron HCl (Zofran Inj) 4 mg Q6H PRN IV NAUSEA OR VOMITING 02/27/17 12:30 03/01/17 09:11 Clonidine (Catapres) 0.1 mg Q6H PRN PO/NG SYS BP GREATER THAN 170 MMHG 02/27/17 12:30 Acetaminophen (Tylenol) 650 mg Q4H PRN PO TEMPERATURE > 101.5 F 02/27/17 12:30 Menthol (Poston Raine) 1 lozenge UNSCH PRN BUCCAL SORE THROAT 02/27/17 12:30 Naloxone HCl (Narcan Inj) 0.4 mg UNSCH PRN IV RESPIRATORY RATE LESS THAN 10 02/27/17 12:30 Diphenhydramine HCl (Benadryl Inj) 25 mg Q6H PRN IV ITCHING 02/27/17 12:30 Hydromorphone HCl (Dilaudid CHAIN MORTISER OPERATOR Inj) 6 mg UNSCH IV 02/27/17 12:30 03/01/17 03:18 CHAIN MORTISER OPERATOR Dosage Infused (Pha) 1 Q8HR .XX 02/27/17 14:00 03/01/17 06:00 Acetaminophen/ Hydrocodone Bitart ([place] 10-325 Mg) 1 tab Q4H PRN PO PAIN SCALE 1 TO 5 02/27/17 12:30 Acetaminophen/ Hydrocodone Bitart ([place] 10-325 Mg) 2 tab Q4H PRN PO PAIN SCALE 6 TO 10 02/27/17 12:30 03/01/17 03:27 Levetriacetam (Keppra) 500 mg HS PO 02/27/17 21:00 02/28/17 20:45 Temazepam (Restoril) 15 mg HS PRN PO INSOMNIA 02/27/17 21:00 02/28/17 20:48 Levothyroxine Sodium (Synthroid) 112 mcg HS PO 02/27/17 21:00 02/28/17 20:44 Pravastatin Sodium (Pravachol) 20 mg DAILY PO 02/28/17 09:00 03/01/17 09:41 Tizanidine HCl (Zanaflex) 4 mg QID PRN PO muscle spasms 02/27/17 13:00 Levothyroxine Sodium (Synthroid) 25 mcg HS PO 02/27/17 21:00 02/28/17 20:44 Morphine Sulfate (Morphine Inj) 2 mg Q4H PRN IV PUSH breakthrough pain 02/28/17 09:30 (Therese Augustin) Medical Decision Making MDM Remarks 76 y/o female s/p L4-5 PLIF 02/27/17, POD 2, stable moderate surgical pain, (Therese Augustin) Plan Plan Remarks cont CHAIN MORTISER OPERATOR today, dc tomorrow oral pain medications prn cont IS every hour SCDs and TEDs for dvt prophylaxis protonix for stress ulcer proph cont PT, encourage increase mobilization TLSO when out of bed appreciate medical assistance dc planning HHC over the weekend dc JIMMY, dc hutchison catheter (Therese Augustin) Attending Statement The exam, history, and the medical decision-making described in the above note were completed with the assistance of the mid-level provider. I reviewed and agree with the findings presented. I attest that I had a [id number] encounter with the patient on the same day, and personally performed and documented my assessment and findings in the medical record. (Joe Frances MD) Therese Augustin Mar 01, 2017 12:29 Joe Frances MD Mar 01, 2017 14:14
[2017-03-01] MEDS: LEVOTHYROXINE SODIUM 112 MCG TAB PO SCH (23:14)
[2017-03-01] MEDS: levETIRAcetam 500 MG TAB PO SCH (23:14)
[2017-03-01] MEDS: LEVOTHYROXINE SODIUM 25 MCG TAB PO SCH (23:14)
[2017-03-02] VITALS (9 sets, daily range): BP systolic 87–170; BP diastolic 47–83; PULSE 67–98; RESP 17–20; TEMP 96–98.7; O2SAT 93–100
[2017-03-02] MEDS: PCA - TOTAL MG DILAUDID DELIVERED PER SHIFT SCH ×3 (06:00→20:30)
[2017-03-02] MEDS: PANTOPRAZOLE SOD 40 MG DELAYED RELEASE TAB PO SCH (08:29)
[2017-03-02] MEDS: PRAVASTATIN SOD 20 MG TAB PO SCH (08:30)
[2017-03-02] MEDS: SODIUM CHLORIDE 0.9% FLUSH 5 ML FLUSH IVF SCH ×2 (08:30→20:34)
[2017-03-02] MEDS: DOCUSATE SODIUM 100 MG CAP PO SCH ×2 (08:30→20:28)
[2017-03-02] MEDS: ACETAMINOPHEN/HYDROcodone 325 MG/10 MG TAB PO PRN ×4 (09:11→23:16)
[2017-03-02] MEDS: NS + KCL 20 MEQ INJ 1,000 ML IV SCH ×2 (10:20→20:20)
[2017-03-02 10:55] LABS: AUTOMATED NEUTROPHIL # 4.1 TH/MM3 (1.8-7.7); BASOPHIL % 0.2 % (0.0-2.0); EOSINOPHIL # 0.2 TH/MM3 (0-0.4); EOSINOPHIL % 3.3 % (0.0-4.0); HEMATOCRIT 23.6 % (35.0-46.0); HEMO FLAGS DIFF FINAL; LYMPH % 21.8 % (9.0-44.0); LYMPHOCYTE # 1.4 TH/MM3 (1.0-4.8); MEAN CELL VOLUME 89.1 FL (80.0-100.0); MEAN CORPUSCULAR HEMOGLOBIN 30.7 PG (27.0-34.0); MEAN CORPUSCULAR HGB CONC 34.5 % (32.0-36.0); MONO % 10.7 % (0.0-8.0); PLATELET COUNT 116 TH/MM3 (150-450); RED BLOOD COUNT 2.65 MIL/MM3 (4.00-5.30); RED CELL DISTRIBUTION WIDTH 13.5 % (11.6-17.2); WHITE BLOOD COUNT 6.5 TH/MM3 (4.0-11.0)
[2017-03-02 11:06] LABS: BICARBONATE 26.8 MEQ/L (21.0-32.0); POTASSIUM 4.8 MEQ/L (3.5-5.1)
--- NOTE | 2017-03-02 11:06 | HHI.PR ---
Subjective Remarks Follow-up for lower back pain s/p TLIF. The patient is seen sitting in a chair with therapy. She complains of intractable lower back pain. She states that nothing helped the pain including the UNDER CUTTER pump. She states that she has a history of labile blood pressure and hypotension. She denies any lightheadedness or dizziness. She says that she follows with a rehabilitation case coordinator because she's had low blood pressure and low heart rate before and had a pacemaker placed. She denies any history of arrhythmia. Discussed with RN, patient has not had a bowel movement postoperatively. Objective Vitals Vital Signs Date Time Temp Pulse Resp B/P Pulse Ox O2 Delivery O2 Flow Rate FiO2 03/02/17 08:00 98.6 67 18 90/47 96 03/02/17 04:00 96.5 84 17 93/50 96 03/02/17 00:00 96.0 78 17 90/52 95 03/01/17 22:00 15 03/01/17 19:00 97.7 84 17 104/54 93 03/01/17 18:31 93 21 03/01/17 16:00 99.1 96 18 151/70 98 03/01/17 13:53 18 03/01/17 12:00 97.5 100 18 149/70 93 I/O 03/01/17 03/01/17 03/01/17 03/02/17 03/02/17 03/02/17 07:00 15:00 23:00 07:00 15:00 23:00 Intake Total 803 ml 1935 ml 480 ml 200 ml Output Total 450 ml 1765 ml 300 ml 300 ml Balance 353 ml 170 ml 180 ml -100 ml Intake Oral 480 ml 1825 ml 480 ml 200 ml IV Total 323 ml 110 ml Output Urine Total 450 ml 1750 ml 300 ml 300 ml Drainage Total 15 ml # Voids 3 0 # Bowel Movements 0 0 Result Diagram: 02/28/17 0556 02/28/17 0556 Imaging Last Impressions Lumbar Spine X-Ray 02/27/17 0000 Signed Impressions: Service Date/Time: Monday, February 27, 2017 09:25 - CONCLUSION: Intraoperative images. Froylan Mantilla MD Objective Remarks GENERAL: Well-developed well-nourished. Appears moderately uncomfortable sitting in a chair. SKIN: Warm and dry. No lesions noted. HEENT: Normocephalic. Pupils equal and round. Mucous membranes pink and moist. CARDIOVASCULAR: Regular rate and rhythm. Soft systolic murmur appreciated. RESPIRATORY: No accessory muscle use. Clear to auscultation. Breath sounds equal bilaterally. GASTROINTESTINAL: Abdomen soft, non-tender, nondistended. Bowel sounds x4. MUSCULOSKELETAL: No obvious deformities. No clubbing or cyanosis. No edema. She also brace in place. NEUROLOGICAL: Awake and alert. No focal neurological deficits. Moves upper and lower extremities spontaneously. Normal speech. PSYCHIATRIC: Appropriate mood and affect; insight and judgment normal. A/P Assessment and Plan This is a 76-year-old female with chronic lower back pain who failed conservative management L4-5 spondylolisthesis, failed conservative management. -Status post L4-5 laminectomy, interbody arthrodhesis using PEEK cage and autologous bone graft, L4-5 instrumental fixation using transpedicular screws and rods, L4-5 posterolateral fusion using autologous bone graft and rods, and microsurgical dissection by Dr. Frances on 02/27/2017. -Continue postoperative management per Dr. Frances including activity, rehabilitation, pain control (off UNDER CUTTER, [place] and morphine prn). History of DVT: Would resume Eliquis when okay with the primary neurosurgery team, discussed with RN. Heart murmur: Checked echocardiogram which showed normal systolic function and mild . Hypotension: Patient reports history of labile blood pressure with hypotension. Blood pressure is soft, but stable at this time. Echocardiogram as above. Continue IVF. Caution with narcotics. Monitor. Constipation: Secondary to narcotics, decreased activity, and anesthesia. Continue Colace. And sennosides. MiraLAX 1. Milk of mag as needed. Other chronic medical conditions include Hypothyroidism/hyperlipidemia/history of seizure disorder: Stable at this time and will continue home medications as indicated. DVT prophylaxis -SCDs. Discharge Planning Per primary team. Edwardo Matos Mar 02, 2017 11:06
[2017-03-02] MEDS ORDERED: POLYETHYLENE GLYCOL 17 GM PKG PO ONE (11:15)
[2017-03-02] MEDS: SENNOSIDES 8.6 MG TAB PO SCH ×2 (11:37→20:29)
--- NOTE | 2017-03-02 12:54 | HHI.NSPN ---
History Chief Complaint: low back pain Interval History Status post L4-5 PLIF System Review Comments No complaint of lower extremity pain or numbness Exam Results Vital Signs Date Time Temp Pulse Resp B/P Pulse Ox O2 Delivery O2 Flow Rate FiO2 03/02/17 08:00 98.6 67 18 90/47 96 03/01/17 18:31 21 02/27/17 18:57 Room Air 02/27/17 15:30 2 Intake and Output 03/01/17 03/01/17 03/02/17 08:00 16:00 00:00 Intake Total 803 ml 1935 ml 480 ml Output Total 450 ml 1765 ml 300 ml Balance 353 ml 170 ml 180 ml Physical Examination Ms. Macario is alert and oriented to time, place and person. Speech is fluent. Wound healing well, dry. Mild abrasions on the face Respirations clear to auscultation. Cardiac regular without murmur Abdomen soft with mild bowel sounds. Nontender Cranial nerve: Extra-ocular movements are intact. Facial movements are normal and symmetrical. Muscle strength is normal in upper extremities. In Lower extremities 5/5 proximal limited due to surgical pain, 5/5 distal with chronic moderate left foot drop. Sensory examination is intact to light touch in lower extremities. Lab, Micro, Other Results Laboratory Tests Test 03/02/17 10:14 White Blood Count 6.5 TH/MM3 Red Blood Count 2.65 MIL/MM3 Hemoglobin 8.1 GM/DL Hematocrit 23.6 % Mean Corpuscular Volume 89.1 FL Mean Corpuscular Hemoglobin 30.7 PG Mean Corpuscular Hemoglobin 34.5 % Concent Red Cell Distribution Width 13.5 % Platelet Count 116 TH/MM3 Mean Platelet Volume 9.0 FL Neutrophils (%) (Auto) 64.0 % Lymphocytes (%) (Auto) 21.8 % Monocytes (%) (Auto) 10.7 % Eosinophils (%) (Auto) 3.3 % Basophils (%) (Auto) 0.2 % Neutrophils # (Auto) 4.1 TH/MM3 Lymphocytes # (Auto) 1.4 TH/MM3 Monocytes # (Auto) 0.7 TH/MM3 Eosinophils # (Auto) 0.2 TH/MM3 Basophils # (Auto) 0.0 TH/MM3 CBC Comment DIFF FINAL Differential Comment Sodium Level 138 MEQ/L Potassium Level 4.8 MEQ/L Chloride Level 105 MEQ/L Carbon Dioxide Level 26.8 MEQ/L Anion Gap 6 MEQ/L Blood Urea Nitrogen 19 MG/DL Creatinine 1.10 MG/DL Estimat Glomerular Filtration 48 ML/MIN Rate Random Glucose 158 MG/DL Calcium Level 8.1 MG/DL Medical Decision Making Impression and Plan Impression: Stable neurologic function postoperative L4 5 fusion Persistent increased back pain Plan: Discussed with patient Discussed with nursing staff HTML DEVELOPER has been discontinued Utilizing IV morphine for breakthrough pain Continue physical therapy Advance diet as tolerated Discharge discussed with patient. She states the pain is poorly controlled and she does not feel that she can manage at home at this point. Matt Melgoza MD Mar 02, 2017 12:53
[2017-03-02] MEDS: LEVOTHYROXINE SODIUM 25 MCG TAB PO SCH (20:29)
[2017-03-02] MEDS: LEVOTHYROXINE SODIUM 112 MCG TAB PO SCH (20:29)
[2017-03-02] MEDS: levETIRAcetam 500 MG TAB PO SCH (20:29)
[2017-03-03] VITALS: BP 145/69; PULSE 90; RESP 20; TEMP 98.6; O2SAT 97
[2017-03-03 04:00] VITALS: BP 104/56; PULSE 70; RESP 20; TEMP 97.1; O2SAT 96
[2017-03-03] MEDS: PCA - TOTAL MG DILAUDID DELIVERED PER SHIFT SCH ×3 (06:00→21:19)
[2017-03-03] MEDS: NS + KCL 20 MEQ INJ 1,000 ML IV SCH (06:20)
[2017-03-03 08:00] VITALS: BP 114/61; PULSE 73; RESP 18; TEMP 97.7; O2SAT 97
[2017-03-03] MEDS: ACETAMINOPHEN/HYDROcodone 325 MG/10 MG TAB PO PRN ×3 (08:50→16:51)
[2017-03-03] MEDS: PANTOPRAZOLE SOD 40 MG DELAYED RELEASE TAB PO SCH (08:50)
[2017-03-03] MEDS: SODIUM CHLORIDE 0.9% FLUSH 5 ML FLUSH IVF SCH ×2 (08:51→21:00)
[2017-03-03] MEDS: PRAVASTATIN SOD 20 MG TAB PO SCH (08:51)
[2017-03-03] MEDS: DOCUSATE SODIUM 100 MG CAP PO SCH ×2 (08:51→21:17)
[2017-03-03] MEDS: SENNOSIDES 8.6 MG TAB PO SCH ×2 (08:51→21:17)
--- NOTE | 2017-03-03 11:21 | HHI.PR ---
Subjective Remarks Follow-up for constipation. S/P TLIF. The patient complains of lower back soreness today. She is much more comfortable and able to breathe with new TLSO brace. She states that she's been tolerating diet better. She denies any chest pain, shortness breath, nausea, vomiting. She continues to complain of constipation, discussed with RN, karla HERNANDEZ. Objective Vitals Vital Signs Date Time Temp Pulse Resp B/P Pulse Ox O2 Delivery O2 Flow Rate FiO2 03/03/17 08:00 97.7 73 18 114/61 97 03/03/17 04:00 97.1 70 20 104/56 96 03/03/17 00:00 98.6 90 20 145/69 97 03/02/17 20:00 98.7 90 20 170/83 100 03/02/17 16:13 98 03/02/17 16:00 96.9 79 17 101/58 96 03/02/17 13:18 154/81 03/02/17 12:00 97.5 72 18 87/50 96 I/O 03/02/17 03/02/17 03/02/17 03/03/17 03/03/17 03/03/17 07:00 15:00 23:00 07:00 15:00 23:00 Intake Total 200 ml 720 ml 240 ml 120 ml Output Total 300 ml 1000 ml Balance -100 ml -280 ml 240 ml 120 ml Intake Oral 200 ml 720 ml 240 ml 120 ml Output Urine Total 300 ml 1000 ml # Voids 2 3 2 # Bowel Movements 0 1 0 Result Diagram: 03/02/17 1014 03/02/17 1014 Objective Remarks GENERAL: Well-developed well-nourished. Appears more comfortable today. SKIN: Warm and dry. No lesions noted. HEENT: Normocephalic. Pupils equal and round. Mucous membranes pink and moist. CARDIOVASCULAR: Regular rate and rhythm. Soft systolic murmur appreciated. RESPIRATORY: No accessory muscle use. Clear to auscultation. Breath sounds equal bilaterally. GASTROINTESTINAL: Abdomen soft, non-tender, nondistended. Bowel sounds x4. MUSCULOSKELETAL: No obvious deformities. No clubbing or cyanosis. No edema. TLSO brace in place. NEUROLOGICAL: Awake and alert. No focal neurological deficits. Moves upper and lower extremities spontaneously. Normal speech. PSYCHIATRIC: Appropriate mood and affect; insight and judgment normal. A/P Assessment and Plan This is a 76-year-old female with chronic lower back pain who failed conservative management L4-5 spondylolisthesis, failed conservative management. -Status post L4-5 laminectomy, interbody arthrodhesis using PEEK cage and autologous bone graft, L4-5 instrumental fixation using transpedicular screws and rods, L4-5 posterolateral fusion using autologous bone graft and rods, and microsurgical dissection by Dr. Frances on 02/27/2017. -Continue postoperative management per Dr. Frances including activity, rehabilitation, pain control (off TAXICAB STARTER, [place] and morphine prn). History of DVT: Resume Eliquis when okay with the primary neurosurgery team, discussed with RN. Heart murmur: Checked echocardiogram which showed normal systolic function and mild . Hypotension: Patient reports history of labile blood pressure with hypotension. Blood pressure is soft, but stable at this time. Echocardiogram as above. Continue IVF. Caution with narcotics. Monitor. Constipation: Secondary to narcotics, decreased activity, and anesthesia. Continue Colace and sennosides. Give milk of magnesia and Dulcolax suppository 1. Milk of mag as needed. Consider enema. Other chronic medical conditions include Hypothyroidism/hyperlipidemia/history of seizure disorder: Stable at this time and will continue home medications as indicated. DVT prophylaxis -SCDs. Written by Edwardo Matos, acting as scribe for Dr. Alves on 03/03/17 at 11:20. This note was transcribed by [email or web address] TURCIOS. I, Dr. Nguyen Alves personally performed the history, physical exam, and medical decision making; and confirmed the accuracy of the information in the transcribed note. Authenticated by Dr. Nguyen Alves on 03/03/17 at 11:20. Discharge Planning Per primary team. Edwardo Matos Mar 03, 2017 11:20 Nguyen Alves MD Mar 03, 2017 17:19
[2017-03-03] MEDS ORDERED: MAGNESIUM HYDROXIDE SUSP 30 ML CUP PO ONE (11:45)
[2017-03-03] MEDS ORDERED: BISACODYL 10 MG SUPP RECTAL ONE (11:45)
[2017-03-03 12:00] VITALS: BP 120/75; PULSE 87; RESP 18; TEMP 98.1; O2SAT 97
[2017-03-03] MEDS ORDERED: SOD PHOSPHATE/SOD BIPHOSPHATE (ADULT) ENEMA 133ML RECTAL PRN (12:30)
[2017-03-03 16:00] VITALS: BP 152/75; PULSE 85; RESP 18; TEMP 98.7; O2SAT 99
--- NOTE | 2017-03-03 19:30 | HHI.NSPN ---
History Chief Complaint: low back pain Interval History Status post L4-5 PLIF Exam Results Vital Signs Date Time Temp Pulse Resp B/P Pulse Ox O2 Delivery O2 Flow Rate FiO2 03/03/17 16:00 98.7 85 18 152/75 99 03/02/17 10:01 21 02/27/17 18:57 Room Air 02/27/17 15:30 2 Intake and Output 03/02/17 03/02/17 03/03/17 08:00 16:00 00:00 Intake Total 200 ml 720 ml 240 ml Output Total 300 ml 1000 ml Balance -100 ml -280 ml 240 ml Physical Examination Ms. Macario is alert and oriented to time, place and person. Speech is fluent. Wound healing well, dry. Mild abrasions on the face Respirations clear to auscultation. Cardiac regular without murmur Abdomen soft with mild bowel sounds. Nontender Cranial nerve: Extra-ocular movements are intact. Facial movements are normal and symmetrical. Muscle strength is normal in upper extremities. In Lower extremities 5/5 proximal limited due to surgical pain, 5/5 distal with chronic moderate left foot drop. Sensory examination is intact to light touch in lower extremities. Medical Decision Making Impression and Plan Impression: Stable neurologic function postoperative L4 5 fusion Persistent increased back pain Plan: Discussed with patient Discussed with nursing staff GROUP FITNESS MANAGER has been discontinued Utilizing IV morphine for breakthrough pain MS Contin added for baseline pain coverage Continue physical therapy Advance diet as tolerated Discharge discussed with patient. She states the pain is poorly controlled and she does not feel that she can manage at home at this point. Matt Melgoza MD Mar 03, 2017 19:30
[2017-03-03 20:30] VITALS: BP 105/54; PULSE 63; RESP 17; TEMP 98; O2SAT 96
[2017-03-03] MEDS: MORPHINE SULFATE 15 MG CONTROLLED RELEASE TAB PO SCH (21:17)
[2017-03-03] MEDS: levETIRAcetam 500 MG TAB PO SCH (21:17)
[2017-03-03] MEDS: LEVOTHYROXINE SODIUM 112 MCG TAB PO SCH (21:17)
[2017-03-03] MEDS: LEVOTHYROXINE SODIUM 25 MCG TAB PO SCH (21:17)
[2017-03-04 00:42] VITALS: BP 119/62; PULSE 70; RESP 17; TEMP 98.4; O2SAT 96
[2017-03-04] MEDS: ACETAMINOPHEN/HYDROcodone 325 MG/10 MG TAB PO PRN ×2 (04:17→12:47)
[2017-03-04] MEDS: PCA - TOTAL MG DILAUDID DELIVERED PER SHIFT SCH ×4 (04:18→21:00)
[2017-03-04 04:32] VITALS: BP_SYST 155; BP_SYST 167; BP_DIAS 63; BP_DIAS 78; PULSE 80; RESP 18; TEMP 98.5; O2SAT 96
[2017-03-04 08:02] VITALS: BP 160/59; PULSE 83; RESP 18; TEMP 98.3; O2SAT 97
[2017-03-04] MEDS: PANTOPRAZOLE SOD 40 MG DELAYED RELEASE TAB PO SCH (08:32)
[2017-03-04] MEDS: DOCUSATE SODIUM 100 MG CAP PO SCH ×2 (08:32→20:56)
[2017-03-04] MEDS: MAGNESIUM HYDROXIDE SUSP 30 ML CUP PO PRN (08:33)
[2017-03-04] MEDS: MORPHINE SULFATE 15 MG CONTROLLED RELEASE TAB PO SCH ×2 (08:33→20:56)
[2017-03-04] MEDS: PRAVASTATIN SOD 20 MG TAB PO SCH (08:33)
[2017-03-04] MEDS: SODIUM CHLORIDE 0.9% FLUSH 5 ML FLUSH IVF SCH ×2 (08:35→20:56)
[2017-03-04] MEDS: SENNOSIDES 8.6 MG TAB PO SCH ×2 (08:38→20:56)
[2017-03-04 12:00] VITALS: BP 170/82; PULSE 89; RESP 18; TEMP 97.4; O2SAT 96
--- NOTE | 2017-03-04 15:08 | HHI.PR ---
Subjective Remarks Follow-up constipation. S/p TLIF on 02/27. Patient states that her pain is uncontrolled. Admits to poor appetite. Patient is discouraged she has not had a substantial BM after so many attempts with medications. Denies any chest pain, cough, shortness of breath, abdominal pain, nausea or vomiting. Also denies any weakness or tingling in bilateral upper and lower extremities. Objective Vitals Vital Signs Date Time Temp Pulse Resp B/P Pulse Ox O2 Delivery O2 Flow Rate FiO2 03/04/17 12:00 97.4 89 18 170/82 96 03/04/17 08:02 98.3 83 18 160/59 97 03/04/17 04:32 98.5 80 18 155/63 96 167/78 03/04/17 00:42 98.4 70 17 119/62 96 03/03/17 20:30 98.0 63 17 105/54 96 03/03/17 16:00 98.7 85 18 152/75 99 I/O 03/03/17 03/03/17 03/03/17 03/04/17 03/04/17 03/04/17 07:00 15:00 23:00 07:00 15:00 23:00 Intake Total 120 ml 840 ml 120 ml Balance 120 ml 840 ml 120 ml Intake Oral 120 ml 840 ml 120 ml # Voids 2 4 3 # Bowel Movements 0 0 0 Result Diagram: 03/02/17 1014 03/02/17 1014 Imaging Last Impressions Lumbar Spine X-Ray 02/27/17 0000 Signed Impressions: Service Date/Time: Monday, February 27, 2017 09:25 - CONCLUSION: Intraoperative images. Froylan Mantilla MD Objective Remarks GENERAL: Well-developed, well-nourished patient, in NAD. SKIN: Warm and dry. No lesions noted. HEENT: Normocephalic. Pupils equal and round. Mucous membranes pink and moist. CARDIOVASCULAR: Regular rate and rhythm. Soft systolic murmur appreciated. RESPIRATORY: No accessory muscle use. Clear to auscultation. Breath sounds equal bilaterally. GASTROINTESTINAL: Abdomen soft, non-tender, nondistended. Bowel sounds x4. MUSCULOSKELETAL: No obvious deformities. No clubbing or cyanosis. No edema. NEUROLOGICAL: Awake and alert. No focal neurological deficits. Moves upper and lower extremities spontaneously. Normal speech. PSYCHIATRIC: Appropriate mood and affect; insight and judgment normal. Urinary Catheter: No Vascular Central Line Catheter: No A/P Assessment and Plan This is a 76-year-old female with chronic lower back pain and L4-5 spondylolisthesis,who failed conservative management. L4-5 spondylolisthesis - Status post L4-5 laminectomy, interbody arthrodhesis using PEEK cage and autologous bone graft, L4-5 instrumental fixation using transpedicular screws and rods, L4-5 posterolateral fusion using autologous bone graft and rods, and microsurgical dissection by Dr. Frances on 02/27/2017. - Continue postoperative management per Dr. Frances including activity, rehabilitation, pain control (off BEE BREEDER, [place] and morphine prn). History of DVT: Resume Eliquis when okay with the primary neurosurgery team. Recommendations appreciated. Heart murmur: Echocardiogram report reviewed, normal systolic function and mild . Hypotension: Patient with history of labile blood pressure and hypotension. Blood pressure is now elevated. Clonidine available PRN. Monitor closely. Constipation, secondary to narcotics, decreased activity, and anesthesia: Continue Colace and sennosides. Milk of magnesia and Dulcolax suppository given. Milk of mag PRN. Fleets enema given this am, 03/04. Last BM documented . Encouraged prune juice intake. Other chronic medical conditions include hypothyroidism, hyperlipidemia, history of seizure disorder: Stable at this time and will continue home medications as indicated. DVT prophylaxis: SCDs. Written by Melissa Batista, acting as scribe for Dr. Alves on 03/04/17 at 1410. This note was transcribed by scribe Melissa ROMAN. I, Dr. Nguyen Alves personally performed the history, physical exam, and medical decision making; and confirmed the accuracy of the information in the transcribed note. Authenticated by Dr. Nguyen Alves on 03/04/17 at 1410. Melissa Batista Mar 04, 2017 15:08 Nguyen Alves MD Mar 04, 2017 19:39
[2017-03-04 16:00] VITALS: BP 96/50; PULSE 64; RESP 18; TEMP 97.5; O2SAT 91
--- NOTE | 2017-03-04 17:51 | HHI.NSPN ---
History Chief Complaint: low back pain improving some today. Interval History 03/04/17: Pt complains of low back pain which is improved some today. She denies any radiculopathy into the LEs. No paresthesias in LEs. She ambulates short distance and has a left foot drop. Review of Systems General: Negative for: fever, chills, insomnia Respiratory: Negative for: shortness of breath, cough, sputum Cardiovascular: Negative for: chest pain Gastrointestinal: Positive for: constipation (Pt had some BM today with fleets enema.), Negative for: nausea, vomitting, diarrhea Exam Results Vital Signs Date Time Temp Pulse Resp B/P Pulse Ox O2 Delivery O2 Flow Rate FiO2 03/04/17 16:00 97.5 64 18 96/50 91 03/02/17 10:01 21 Intake and Output 03/03/17 03/03/17 03/04/17 08:00 16:00 00:00 Intake Total 120 ml 600 ml 240 ml Balance 120 ml 600 ml 240 ml Physical Examination Resp: CTA bilaterally Heart: NSR no murmurs Abd: Soft positive bs Skin: No cyanosis or erythema Muscle: Left foot drop otherwise 5/5 in LEs. Limited ambulatory status. Neuro: Pt awake and alert. follows commands well. speech clear and appropriate. Lab, Micro, Other Results Last Impressions Lumbar Spine X-Ray 02/27/17 0000 Signed Impressions: Service Date/Time: Monday, February 27, 2017 09:25 - CONCLUSION: Intraoperative images. Froylan Mantilla MD 03/03/17 03/03/17 03/04/17 15:00 23:00 07:00 Intake Total 840 ml 120 ml Balance 840 ml 120 ml Intake Oral 840 ml 120 ml # Voids 4 3 # Bowel Movements 0 0 Medical Decision Making Impression and Plan 76 y/o FM s/p L4/L5 PLIF P: Recommend rehab placement. Pt has a left foot drop, limited ambulatory status and lives with someone is is of advanced age and unable to help her significantly. Continue with pain control Tim Cash Mar 04, 2017 17:51
[2017-03-04 20:45] VITALS: BP 126/58; PULSE 73; RESP 18; TEMP 98.6; O2SAT 98
[2017-03-04] MEDS: LEVOTHYROXINE SODIUM 112 MCG TAB PO SCH (20:55)
[2017-03-04] MEDS: LEVOTHYROXINE SODIUM 25 MCG TAB PO SCH (20:55)
[2017-03-04] MEDS: levETIRAcetam 500 MG TAB PO SCH (20:56)
[2017-03-05 00:55] VITALS: BP 146/81; PULSE 80; RESP 18; TEMP 99.8; O2SAT 96
[2017-03-05] MEDS: ACETAMINOPHEN/HYDROcodone 325 MG/10 MG TAB PO PRN ×2 (03:15→13:20)
[2017-03-05 04:25] VITALS: BP 151/73; PULSE 87; RESP 18; TEMP 98.3; O2SAT 94
[2017-03-05] MEDS: PANTOPRAZOLE SOD 40 MG DELAYED RELEASE TAB PO SCH (08:01)
[2017-03-05] MEDS: DOCUSATE SODIUM 100 MG CAP PO SCH (08:01)
[2017-03-05] MEDS: PRAVASTATIN SOD 20 MG TAB PO SCH (08:01)
[2017-03-05] MEDS: MORPHINE SULFATE 15 MG CONTROLLED RELEASE TAB PO SCH (08:01)
[2017-03-05] MEDS: SODIUM CHLORIDE 0.9% FLUSH 5 ML FLUSH IVF SCH (08:07)
[2017-03-05] MEDS: SENNOSIDES 8.6 MG TAB PO SCH (08:08)
[2017-03-05 08:10] VITALS: BP 151/76; PULSE 80; RESP 18; TEMP 97.4; O2SAT 98
[2017-03-05 12:25] VITALS: BP 142/70; PULSE 78; RESP 16; TEMP 97.6; O2SAT 98
--- NOTE | 2017-03-05 13:28 | HHI.PR ---
Subjective Remarks Follow-up for constipation s/p TLIF. The patient an enema yesterday with a large BM. She still feels a little gassy today. She is excited about going to SNF today. She reports good urine output. She denies any fevers or chills. She states her pain is fairly controlled. Objective Vitals Vital Signs Date Time Temp Pulse Resp B/P Pulse Ox O2 Delivery O2 Flow Rate FiO2 03/05/17 08:10 97.4 80 18 151/76 98 03/05/17 04:25 98.3 87 18 151/73 94 03/05/17 00:55 99.8 80 18 146/81 96 03/04/17 20:45 98.6 73 18 126/58 98 03/04/17 16:00 97.5 64 18 96/50 91 I/O 03/04/17 03/04/17 03/04/17 03/05/17 03/05/17 03/05/17 07:00 15:00 23:00 07:00 15:00 23:00 Intake Total 120 ml 1200 ml 480 ml 240 ml Output Total 1 ml Balance 120 ml 1200 ml 479 ml 240 ml Intake Oral 120 ml 1200 ml 480 ml 240 ml Stool Total 1 ml # Voids 3 3 1 3 # Bowel Movements 0 4 0 2 Result Diagram: 03/02/17 1014 03/02/17 1014 Imaging Last Impressions Lumbar Spine X-Ray 02/27/17 0000 Signed Impressions: Service Date/Time: Monday, February 27, 2017 09:25 - CONCLUSION: Intraoperative images. Froylan Mantilla MD Objective Remarks GENERAL: Well-developed well-nourished. No acute distress. SKIN: Warm and dry. No lesions noted. HEENT: Normocephalic. Pupils equal and round. Mucous membranes pink and moist. CARDIOVASCULAR: Regular rate and rhythm. Soft systolic murmur appreciated. RESPIRATORY: No accessory muscle use. Clear to auscultation. Breath sounds equal bilaterally. GASTROINTESTINAL: Abdomen soft, non-tender, nondistended. Bowel sounds x4. MUSCULOSKELETAL: No obvious deformities. No clubbing or cyanosis. No edema. NEUROLOGICAL: Awake and alert. No focal neurological deficits. Moves upper and lower extremities spontaneously. Normal speech. PSYCHIATRIC: Appropriate mood and affect; insight and judgment normal. A/P Assessment and Plan This is a 76-year-old female with chronic lower back pain who failed conservative management L4-5 spondylolisthesis, failed conservative management. -Status post L4-5 laminectomy, interbody arthrodhesis using PEEK cage and autologous bone graft, L4-5 instrumental fixation using transpedicular screws and rods, L4-5 posterolateral fusion using autologous bone graft and rods, and microsurgical dissection by Dr. Frances on 02/27/2017. -Continue postoperative management per Dr. Frances including activity, rehabilitation, pain control. History of DVT: Resume Eliquis when okay with the primary neurosurgery team. Heart murmur: Checked echocardiogram which showed normal systolic function and mild . Hypotension: Patient reports history of labile blood pressure with hypotension. Blood pressure is soft, but stable at this time. Echocardiogram as above. Continue IVF. Caution with narcotics. Monitor. Constipation: Secondary to narcotics, decreased activity, and anesthesia. Resolved after enema. Continue bowel regimen. Other chronic medical conditions include Hypothyroidism/hyperlipidemia/history of seizure disorder: Stable at this time and will continue home medications as indicated. DVT prophylaxis -SCDs. The patient is stable postoperatively and medicine will sign off at this time. We will be happy to see the patient if any new issues were to arise. Written by Edwardo Matos, acting as scribe for Dr. Alves on 03/05/17 at 13:27. This note was transcribed by dg TURCIOS. I, Dr. Nguyen Alves personally performed the history, physical exam, and medical decision making; and confirmed the accuracy of the information in the transcribed note. Authenticated by Dr. Nguyen Alves on 03/05/17 at 13:27. Discharge Planning Per primary team. Likely to [facility]. Edwardo Matos Mar 05, 2017 13:28 Nguyen Alves MD Mar 05, 2017 21:58
[2017-03-05] MEDS: PCA - TOTAL MG DILAUDID DELIVERED PER SHIFT SCH (13:57)
--- NOTE | 2017-03-05 15:14 | HHI.NSPN ---
Note Status Status: Progress Note Interval History Interval History 02/27: Ms. Macario underwent a L4-5 laminectomy, interbody arthrodesis using PEEK cage bone graft, posterolateral fixation with transpedicular screws and rods. 02/28: POD 1, moderate surgical pain even with Dilaudid [employer], she has a history of chronic narcotic use. no chest pain, difficulty breathing. 03/01: POD 2, doing ok, stable post-op pain, c/o nausea from [employer], awaiting IV Zofran. Ambulated yesterday, does not want rehab upon dc. Reports of increased sensation in LE's. 03/02/17: No complaint of lower extremity pain or numbness 03/03: Status post L4-5 PLIF 03/04: Pt complains of low back pain which is improved some today. She denies any radiculopathy into the LEs. No paresthesias in LEs. She ambulates short distance and has a left foot drop. 03/05: Pt still w/low back pain. No pain or numbness into the lower extremities. Still with foot drop. Accepted at [facility] for rehab. Labs, Micro, & Vital Signs Constitutional Vital Signs Date Time Temp Pulse Resp B/P Pulse Ox O2 Delivery O2 Flow Rate FiO2 03/05/17 12:25 97.6 78 16 142/70 98 03/05/17 08:10 97.4 80 18 151/76 98 03/05/17 04:25 98.3 87 18 151/73 94 03/05/17 00:55 99.8 80 18 146/81 96 03/04/17 20:45 98.6 73 18 126/58 98 03/04/17 16:00 97.5 64 18 96/50 91 03/05/17 07:00 Intake Total 1920 ml Output Total 1 ml Balance 1919 ml Review of Systems/Exam ROS Neuro: Still with left foot drop. Denies any headache, dizziness, numbness or tingling. Resp: Denies any shortness of breath or productive cough. Cardiac: Denies any chest pain, palpitations or irregular heart rate. GI: Denies any abdominal pain, nausea, vomiting or bowel incontinence. : Denies any bladder incontinence. MS: Still with pain to the back that feels different since the surgery. Denies any pain to the extremities. Still with left foot drop. Exam Constitutional: Awake & alert, no apparent distress. Resp: CTAB w/o W/R/R, equal excursion, non-laboured, on RA. CV: S1S2 w/RRR w/o M/G/R. GI: Abdomen soft, nontender, positive bowel sounds. Extremities: Moves all extremities w/o difficulty. No evident deformity, clubbing or edema. Back: In TLSO brace, back TTP at surgical site. Neuro: AAOx3. Speech clear & appropriate. Follows command. Sensation grossly intact to BLE to light touch. Motor strength 5/5 BLE except for left foot drop. Medications Current Medications Current Medications Medications (Trade) Dose Ordered Sig/Enriqueta Route Start Time Stop Time Status Last Admin (NS Flush) 2 ml UNSCH PRN IVF 02/27/17 12:30 (NS Flush) 2 ml BID IVF 02/27/17 12:30 03/04/17 20:56 (Colace) 100 mg BID PO 02/27/17 14:30 03/05/17 08:01 (Milk Of Magnesia Liq) 30 ml DAILY PRN PO 02/27/17 12:30 03/04/17 08:33 (Protonix) 40 mg DAILY PO 02/27/17 15:00 03/05/17 08:01 (Zofran Inj) 4 mg Q6H PRN IV 02/27/17 12:30 03/01/17 14:27 (Catapres) 0.1 mg Q6H PRN PO/NG 02/27/17 12:30 (Tylenol) 650 mg Q4H PRN PO 02/27/17 12:30 ([place] Raine) 1 lozenge UNSCH PRN BUCCAL 02/27/17 12:30 (Narcan Inj) 0.4 mg UNSCH PRN IV 02/27/17 12:30 (Benadryl Inj) 25 mg Q6H PRN IV 02/27/17 12:30 [employer] Dosage Infused (Pha) 1 Q8HR .XX 02/27/17 14:00 03/01/17 22:00 (Ruso 10-325 Mg) 1 tab Q4H PRN PO 02/27/17 12:30 (Ruso 10-325 Mg) 2 tab Q4H PRN PO 02/27/17 12:30 03/05/17 13:20 (Keppra) 500 mg HS PO 02/27/17 21:00 03/04/17 20:56 (Restoril) 15 mg HS PRN PO 02/27/17 21:00 02/28/17 20:48 (Synthroid) 112 mcg HS PO 02/27/17 21:00 03/04/17 20:55 (Pravachol) 20 mg DAILY PO 02/28/17 09:00 03/05/17 08:01 (Zanaflex) 4 mg QID PRN PO 02/27/17 13:00 03/05/17 13:20 (Synthroid) 25 mcg HS PO 02/27/17 21:00 03/04/17 20:55 (Morphine Inj) 2 mg Q4H PRN IV PUSH 02/28/17 09:30 (Senokot) 8.6 mg Q12HR PO 03/02/17 11:00 03/04/17 08:38 (Fleets Enema (Adult)) 133 ml UNSCH PRN RECTAL 03/03/17 12:30 03/04/17 08:34 (Oramorph Sr) 15 mg Q12HR PO 03/03/17 21:00 03/05/17 08:01 Medical Decision Making MDM Remarks Impression: 76 y/o FM s/p L4/L5 PLIF with resolution of radiculopathy to LLE, still w/ lumbar back pain that is different since surgery. Plan Plan Remarks Discharge to SNF for further rehab/therapy due to a left foot drop, limited ambulatory status and lives with someone is is of advanced age who is unable to help her significantly. Continue with pain control Edward Calero Mar 05, 2017 15:14
--- NOTE | 2017-03-11 16:15 | HHI.DS ---
Discharge Summary Admission Date Feb 27, 2017 at 06:25 Discharge Date: April 04, 2017 Admitting Diagnosis s/p lumbar fusion (1) S/P lumbar spinal fusion ICD Code: Z98.1 Brief History Ms Macario is a 76 year-old female who presented with intractable mechanical back pain and michelle evidence of L5 lower extremity radiculopathy. She failed maximum nonsurgical management including multiple modalities of conservative treatment as well as pain management interventions by an interventional pain specialist. She has spondylolisthesis and severe loss of disk height. A surgical decompression and arthrodesis were indicated as a last resort. Imaging Last Impressions Lumbar Spine X-Ray 02/27/17 0000 Signed Impressions: Service Date/Time: Monday, February 27, 2017 09:25 - CONCLUSION: Intraoperative images. Froylan Mantilla MD Hospital Course Ms. Macario underwent a L4-5 laminectomy, interbody arthrodesis using PEEK cage and autologous bone graft, L4-5 instrumental fixation using transpedicular screws and rods, L4-5 posterolateral fusion using autologous bone graft and rods on Feb 27, 2017 for lumbar spondylolisthesis. Her pain was managed with [employer] pump that was subsequently weaned off. Her surgical pain slowly improved and tolerable on oral pain medications. She was discharged to inpatient rehab in stable conditions. Pt Condition on Discharge: Stable Discharge Disposition: Rehab Inpatient Discharge Instructions DIET: Follow Instructions for: As Tolerated, No Restrictions ACTIVITIES You can perform: Weight Bearing As Saba Activities to Avoid: Lifting/Bending, Strenuous Activity Follow up Referrals: SNF/[facility]/ with [facility] New Medications: Hydrocodone-Acetaminophen (Hydrocodone-Acetaminophen) 10-325 mg Tab 1 TAB PO Q8HR PRN PAIN SCALE 1 TO 10 #90 TAB Continued Medications: Apixaban (Eliquis) 5 Mg Tab 5 MG PO BID Blood Clot Prevention #[address] (Dul[address]ax DR) 5 Mg Tabdr 5 MG PO DAILY PRN CONSTIPATION #30 Ref 0 TAB Levetiracetam (Levetiracetam) 500 Mg Tab 500 MG PO HS Control Seizures #60 Ref 0 TAB Levothyroxine (Levo-T) 137 Mcg Tab 137 MCG PO HS Thyroid #30 Ref 0 TAB Omeprazole (Omeprazole) 20 Mg Cap 20 MG PO BID Oxycodone (Oxycodone) 10 Mg Tab 10 MG PO Q8H PRN PAIN #90 Ref 0 TAB (This prescription has been renewed) Promethazine (Phenergan) 25 Mg Tab 25 MG PO Q8HR PRN Nausea/Vomiting #20 Ref 0 TAB Simvastatin (Simvastatin) 10 Mg Tab 10 MG PO DAILY Cholesterol Management #30 Ref 0 TAB Temazepam (Temazepam) 15 Mg Cap 15 MG PO HS PRN INSOMNIA #30 Ref 0 CAP Tizanidine (Zanaflex) 4 Mg Tab 4 MG PO QID Muscle Spasm Ref 0 TAB Therese Augustin March 11, 2017 16:15
== END 2017-03-05 15:40 | DRG 460 ==
LOC: HSDI 02-27 06:25 → N06A 02-27 15:45
PROVIDERS: ADMIT Neurological Surgery; ATTEND Neurological Surgery
PROC: 4A11X4G Monitoring of Peripheral Nervous Electrical Activity, Intraoperative, External Approach (ICD-10-PCS; 2017-02-27)
PROC: 0SG00A1 (ICD-10-PCS; principal; 2017-02-27 08:32)
DX: M43.16 Spondylolisthesis, lumbar region (principal); I95.9 Hypotension, unspecified; R56.9 Unspecified convulsions; I12.9 Hypertensive chronic kidney disease with stage 1 through stage 4 chronic kidney disease, or unspecified chronic kidney disease; N18.9 Chronic kidney disease, unspecified; E03.9 Hypothyroidism, unspecified; M54.16 Radiculopathy, lumbar region; E78.5 Hyperlipidemia, unspecified; K21.9 Gastro-esophageal reflux disease without esophagitis; Z86.718 Personal history of other venous thrombosis and embolism; Z87.891 Personal history of nicotine dependence; Z79.02 Long term (current) use of antithrombotics/antiplatelets; R01.1 Cardiac murmur, unspecified; Z79.891 Long term (current) use of opiate analgesic; K59.03 Drug induced constipation; M21.372 Foot drop, left foot
CPT/HCPCS: 72100; 76000; 76937; 80048; 85025; 86850; 86900; 86901; 93306; 94150; C1713; J0131; J0690; J1170; J1580; J2250; J2270; J2370; J2405; J3010; J3370; J3480; J7040; J7050; J7120; L0200; L0484

== ENCOUNTER → 2017-02-15 | Outpatient (CLI) | payer OTHER ==
[~2017-02-15] MED LIST changes: +BISA10SU3 RECTAL; +DULC5TAB PO; +HYDR-3583 PO; +MACR100C2 PO; +OXYC-395 PO; +OXYC1TAB36 PO; +POTA-243 PO; +PROM25TA5 PO
[2017-02-15 11:27] LABS: AUTOMATED NEUTROPHIL # 4.6 TH/MM3 (1.8-7.7); BASOPHIL # 0.1 TH/MM3 (0-0.2); BASOPHIL % 0.8 % (0.0-2.0); EOSINOPHIL # 0.2 TH/MM3 (0-0.4); EOSINOPHIL % 2.7 % (0.0-4.0); HEMATOCRIT 35.6 % (35.0-46.0); HEMO FLAGS DIFF FINAL; LYMPH % 20.9 % (9.0-44.0); LYMPHOCYTE # 1.4 TH/MM3 (1.0-4.8); MEAN CELL VOLUME 89.3 FL (80.0-100.0); MEAN CORPUSCULAR HEMOGLOBIN 30.7 PG (27.0-34.0); MEAN CORPUSCULAR HGB CONC 34.4 % (32.0-36.0); MONO % 8.4 % (0.0-8.0); NEUT % 67.2 % (16.0-70.0); PLATELET COUNT 240 TH/MM3 (150-450); RED BLOOD COUNT 3.98 MIL/MM3 (4.00-5.30); RED CELL DISTRIBUTION WIDTH 14.3 % (11.6-17.2); WHITE BLOOD COUNT 6.9 TH/MM3 (4.0-11.0)
[2017-02-15 11:35] LABS: APTT (PATIENT) 25.4 SEC (24.3-30.1); PROTHROMBIN TIME - PATIENT 11.5 SEC (9.8-11.6)
[2017-02-15 11:52] LABS: ALKALINE PHOSPHATASE 90 U/L (45-117); ALT (GPT) 12 U/L (10-53); ANION GAP 9 MEQ/L (5-15); AST (GOT) 22 U/L (15-37); BICARBONATE 24.3 MEQ/L (21.0-32.0); BLOOD UREA NITROGEN 15 MG/DL (7-18); CHLORIDE 107 MEQ/L (98-107); GLOMERULAR FILTRATION RATE 42 ML/MIN (>89); GLUCOSE,FASTING 117 MG/DL (74-99); POTASSIUM 4.2 MEQ/L (3.5-5.1); SODIUM (NA) 140 MEQ/L (136-145); TOTAL BILIRUBIN ADULT 0.6 MG/DL (0.2-1.0)
--- NOTE | 2017-02-15 13:11 | RADRPT ---
EXAM DATE/TIME: 02/15/2017 12:55 [facility] COMPARISON: No previous studies available for comparison. INDICATIONS : Evaluate for pneumonia, pneumothorax or communicable disease. Pre op lumbar fusion. MEDICAL HISTORY : Cardiovascular disease. SURGICAL HISTORY : Pacemaker. ENCOUNTER: Initial ACUITY: 1 day PAIN SCORE: 0/10 LOCATION: Bilateral chest FINDINGS: The heart is normal in size. There is a 6 mm calcified granuloma at the left lung base. The lungs are clear. Note is made of a transvenous pacer. There are mild degenerative changes in the spine. CONCLUSION: 1. Small calcified granuloma at the right base. No acute cardiopulmonary findings. 2. Severe scoliotic changes of the thoraco lumbar junction. Nehemias Whitney MD on February 15, 2017 at 13:07 Board Certified Radiologist. This report was verified electronically.
[2017-02-15 13:28] LABS: BACTERIA, URINE MANY /hpf; BLOOD, URINE NEG (NEG); COMMENT (UR) CULTURE INDICATED; CULTURE IF INDICATED CULTURE INDICATED; GLUCOSE,URINE NEG (NEG); GRANULAR CAST, URINE 2 /lpf; KETONE, URINE NEG (NEG); MUCUS URINE FEW /lpf (OCC); NITRITE,URINE NEG (NEG); PH, URINE 5.5 (5.0-8.5); SQUAMOUS EPITHELIAL CELL URINE 2 /hpf (0-5); URINE COLOR YELLOW (YELLW/STRAW)
--- NOTE | 2017-02-16 14:25 | EKG ---
Date Performed: 02/15/2017 Time Performed: 11:31:56 PTAGE: 76 years EKG: Sinus rhythm POSSIBLE INFERIOR MYOCARDIAL INFARCTION, PROBABLY OLD BORDERLINE ECG NO PREVIOUS TRACING DOCTOR: Lion Goel Interpretating Date/Time 02/16/2017 14:23:43
== END ==
LOC: CPRE 10:45
PROVIDERS: ATTEND Neurological Surgery
DX: Z01.812 Encounter for preprocedural laboratory examination (principal); Z01.811 Encounter for preprocedural respiratory examination; Z01.810 Encounter for preprocedural cardiovascular examination; M43.16 Spondylolisthesis, lumbar region; N39.0 Urinary tract infection, site not specified; B96.20 Unspecified Escherichia coli [E. coli] as the cause of diseases classified elsewhere; Z79.01 Long term (current) use of anticoagulants; Z95.0 Presence of cardiac pacemaker
CPT/HCPCS: 36415; 71020; 80053; 81001; 85025; 85610; 85730; 87077; 87086; 87186; 93005